=== PATIENT | female | born 1990 | race Caucasian/White ===

== ENCOUNTER → 2016-07-07 | Outpatient (CLI) | payer OTHER ==
[~2016-07-07] MED LIST: ACHD5005 PO; AMOX500C2 PO; ANTI14DR4 OT; Azo; BUTA-234 PO; CIPR500T78 PO; CPR500T PO; DEPO SHOT; DOXY100C2 PO; FERR-57 PO; HYDR-34 PO; HYDR1TAB PO; IBUP-1773 PO; Ibuprofen; METR500T PO; NF-NOR777T PO; NITR100C3 PO; ONDA8TAB9 PO; OXYC-12 PO; PHEN100T17 PO; PHEN200T27 PO; PREN-115 PO; PREN-93 PO; Tylenol
--- NOTE | 2016-07-07 16:28 | Diagnostic Imaging Report ---
OB ultrasound. INDICATION: heart tones not heard in office examination. FINDINGS: There is a single intrauterine seen. heart rate is 149 beats per minute. The average growth parameters at this time are 13 weeks and 6 days compatible with the gestational age based on first trimester ultrasound of 13 weeks and 4 days. There is early placental implantation thicker posteriorly with no retroplacental hemorrhage. IMPRESSION: Live intrauterine . Appropriate interval growth. Dictated by: Dictated on workstation # [id number]
== END ==
LOC: RAD 15:59
PROVIDERS: ATTEND Family Medicine
DX: Z34.91 Encounter for supervision of normal pregnancy, unspecified, first trimester (principal); Z3A.13 13 weeks gestation of pregnancy
CPT/HCPCS: 76801

== ENCOUNTER → 2016-10-29 | Outpatient (CLI) | payer OTHER ==
--- NOTE | 2016-10-29 13:42 | Diagnostic Imaging Report ---
INDICATION: OB ultrasound for survey. FINDINGS: Single live intrauterine fetus. Fetus is currently vertex. Fetus is active. The amniotic fluid index is normal. Placenta is anterior and grade 1. No evidence of abruption or previa. heartbeat of 150 beats per minute. anatomical survey appears normal with the exception of cord insertion which was not well demonstrated due to position. Biometric measurements are BPD 7.36 cm, head circumference 28.54 cm, abdominal circumference 26.74 cm, femur length 5.52 cm. Estimated weight of 1538 g. IMPRESSION: 1. There is a 29 weeks 6 days live intrauterine dated by previous ultrasound. Patient shows normal growth within the 50th percentile for size and weight. 2. The umbilical cord is three vessel however the abdominal insertion was not well demonstrated on this exam due to positioning. Remainder of the survey was normal. Dictated by: Dictated on workstation # [id number]
== END ==
LOC: RAD 12:10
PROVIDERS: ATTEND Family Medicine
DX: Z34.93 Encounter for supervision of normal pregnancy, unspecified, third trimester (principal); Z36 Encounter for antenatal screening of mother; Z3A.28 28 weeks gestation of pregnancy
CPT/HCPCS: 76805

== ENCOUNTER 2016-12-15 00:06 | Inpatient (IN) | payer MEDICAID ==
[~2016-12-15] VITALS: Ht 170.2 cm; Wt 92.7 kg
[2016-12-15] VITALS (46 sets, daily range): BP systolic 106–160; BP diastolic 57–106
[2016-12-15 01:00] LABS: BILIRUBIN,URINE NEGATIVE (NEGATIVE); KETONES,URINE NEGATIVE (NEGATIVE); LEUKOCYTE ESTERASE ,URINE 3+ (NEGATIVE); NITRITE,URINE NEGATIVE (NEGATIVE); PH,URINE 6.5 (5-9); PROTEIN,URINE NEGATIVE (NEGATIVE); UROBILINOGEN,URINE NORMAL (NORMAL)
[2016-12-15] MEDS ORDERED: PREN-142 PO (01:30)
[2016-12-15] MEDS ORDERED: AMPICILLIN 2000 MG INJECTION (IM/IV) ONE (07:18)
[2016-12-15] MEDS ORDERED: NS (IVPB) 50 ML ONE (07:18)
[2016-12-15] MEDS ORDERED: D5 LR IV SOLUTION 1,000 ML IV ONE (07:18)
[2016-12-15] MEDS ORDERED: CATHETER FLUSH 10 ML SYR IV PRN (07:45)
[2016-12-15] MEDS ORDERED: D5 LR IV SOLUTION 1,000 ML IV SCH (07:45)
[2016-12-15] MEDS ORDERED: OXYTOCIN/NORMAL SALINE 500 ML IV SCH ×2 (07:45→15:00)
--- NOTE | 2016-12-15 07:45 | History & Physical-OB ---
OB - Chief Complaint & HPI Date/Time Date of Admission: December 15, 2016 Time Seen by Provider: 07:40 Chief Complaint/History OB-Reason for Admission/Chief: Onset of Labor Hx : 4 Hx Para: 3 Expected Date of Delivery: Jan 08, 2017 Gestational Age in Weeks: 36 Gestational Age in Days: 4 Admission Nurse Assessment Rev: Yes History of Labs GBS status is unknown Allergies and Home Medications Allergies Coded Allergies: zolmitriptan (Unverified Allergy, Mild, 05/14/09) Home Medications Vit No.124/Iron/FA 1 Each Tablet, 1 EACH PO DAILY, (Reported) OB - History Hx of Present Care: Yes Ultrasounds: Normal mid trimester US Obstetrical Complications: None Medical Complications: None Obstetrical History Hx : 4 Hx Para: 3 Hx Termination: No Hx Multiple Gestation: No Hx Stillbirth: No Hx Complication: No Hx Induced Hypertens: No Hx Maternal Gestational Diabet: No Delivery History Hx Dystocia: No Hx Large For Gestational Age I: No Hx Small for Gestational Age I: No Hx Section: No Hx Vaginal Delivery Post C-Sec: No Hx Blood Disorders: No Patient Past Medical History Past Medical History 1. Pre-eclampsia with 2. Tobaccoism 3. Recurrent UTI's Past Surgical History 1. None Social History/Family History HIV/AIDS: No Recent Infectious Disease Expo: No Sexually Transmitted Disease: No Immunizations Hepatitis A: Yes Hepatitis B: Yes Tetanus Booster (TDap): Less than 5yrs Date of Influenza Vaccine: May 16, 2012 OB - Admission Exam Physical Exam Date Seen by Provider: Dec 15, 2016 Time Seen by Provider: 07:40 HEENT: Moist Membranes Heart: Rhythm Normal Lungs: Clear Abdomen: Gravid Cervical Dilatation: 5cm Effacement: 50% Station: -2 Membranes: Intact Heart Rate: 140's Accelerations: Accelerations Present Short Term Variability: Present Jail Variability: Average (6-25) Intensity: Moderate Labs Laboratory Tests Test 12/15/16 00:15 Range/Units Urine Color YELLOW Urine Clarity SLIGHTLY CLOUDY Urine pH 6.5 5-9 Urine Specific [place] 1.015 L 1.016-1.022 Urine Protein NEGATIVE NEGATIVE Urine Glucose (UA) NEGATIVE NEGATIVE Urine Ketones NEGATIVE NEGATIVE Urine Nitrite NEGATIVE NEGATIVE Urine Bilirubin NEGATIVE NEGATIVE Urine Urobilinogen NORMAL NORMAL MG/DL Urine Leukocyte Esterase 3+ H NEGATIVE Urine RBC (Auto) NEGATIVE NEGATIVE Urine RBC NONE /HPF Urine WBC 5-10 H /HPF Urine Squamous Epithelial Cells 5-10 /HPF Urine Crystals NONE /LPF Urine Bacteria MODERATE H /HPF Urine Casts NONE /LPF Urine Mucus SMALL H /LPF Urine Culture Indicated YES OB - Assessment/Plan/Diagnosis Assessment Assessment: active labor (at 36 weeks 4 days gestation) Plan Induction Method: AROM Other Plan -she desires epidural -ampicillin for unknown GBS status ALBINA MORALES MD Dec 15, 2016 07:45
[2016-12-15 08:02] LABS: BASOPHILS % (AUTO) 0 % (0-10); EOSINOPHILS # (AUTO) 0.1 10^3/uL (0.0-0.3); EOSINOPHILS % (AUTO) 1 % (0-10); LYMPHOCYTES % (AUTO) 19 % (12-44); MEAN CORPUSCULAR HEMOGLOBIN 30 PG (25-34); MEAN CORPUSCULAR HGB CONC 32 G/DL (32-36); MEAN CORPUSCULAR VOLUME 91 FL (80-99); MEAN PLATELET VOLUME 11.7 FL (7.4-10.4); MONOCYTES # (AUTO) 0.8 X 10^3 (0.0-1.0); MONOCYTES % (AUTO) 7 % (0-12); NEUTROPHILS # (AUTO) 7.4 X 10^3 (1.8-7.8); NEUTROPHILS % (AUTO) 73 % (42-75); PLATELET COUNT 143 10^3/uL (130-400); RED BLOOD COUNT 3.53 10^6/uL (4.35-5.85); RED CELL DISTRIBUTION WIDTH 13.8 % (10.0-14.5); WHITE BLOOD COUNT 10.3 10^3/uL (4.3-11.0)
[2016-12-15] MEDS ORDERED: LACTATED RINGERS 1,000 ML IV ONE ×2 (08:33→09:57)
[2016-12-15] MEDS ORDERED: SUFENTA 0.6MCG/ML BUPIVA 0.125 100 ML ONE (09:01)
[2016-12-15] MEDS ORDERED: BUPIVACAINE 0.25% 30 ML (SENSORCAINE) VIAL ONE (09:27)
[2016-12-15] MEDS ORDERED: fentaNYL INJECTION 100 MCG/2 ML AMP ONE (09:27)
[2016-12-15] MEDS ORDERED: fentaNYL INJECTION 100 MCG/2 ML AMP INJ ONE (10:00)
[2016-12-15] MEDS ORDERED: diphenhydrAMINE 50 MG/ML INJ (BENADRYL) IV PRN (10:00)
[2016-12-15] MEDS ORDERED: EPIDURAL (SUFENTA 0.6MCG/ML BUPIVA 0.125%) 100 ML BAG EPI ONE (10:00)
[2016-12-15] MEDS ORDERED: METOCLOPRAMIDE INJ 10 MG/2 ML (REGLAN) IV PRN (10:00)
[2016-12-15] MEDS ORDERED: NALOXONE 0.4 MG/ML 1 ML (NARCAN) VIAL IV PRN (10:00)
[2016-12-15] MEDS ORDERED: ONDANSETRON 4 MG/2 ML (SDV) Z0FRAN IV PRN (10:00)
[2016-12-15] MEDS ORDERED: AMPICILLIN INJECTION 1,000 MG in NS (IVPB) 50 ML IV SCH (11:30)
[2016-12-15] MEDS ORDERED: BENZOCAINE/MENTHOL (DERMOPLAST) 56 ML CAN TP PRN (15:00)
[2016-12-15] MEDS ORDERED: WITCH HAZEL(TUCKS) 40 EA JAR TOP PRN (15:00)
[2016-12-15] MEDS ORDERED: MEASLES,MUMPS,RUBELLA 1 EA INJ SQ ONE (15:00)
[2016-12-15] MEDS ORDERED: HYDROcodone/APAP 5 MG/325 MG (LORTAB) TAB PO PRN (15:00)
[2016-12-15] MEDS ORDERED: TETANUS,DIPTH,PERTUSS P/F (BOOSTRIX) 0.5 ML VIAL IM ONE (15:00)
--- NOTE | 2016-12-15 15:00 | OB Labor & Delivery Record ---
L&D History Date of Service Date of Service: Dec 15, 2016 History Expected Date of Delivery: Jan 08, 2017 Gestational Age in Weeks: 36 Hx : 4 Hx Para: 3 Complications Events: Routine care Operative Indications (Cesarea: N/A-Vaginal Delivery Intrapartal Events: None L&D Stage1 Stage One Onset of Labor - Date: Dec 15, 2016 Onset of Labor - Time: 10:00 Monitors and Tracing Monitor Mode: Internal Heart Rate: 120 Monitor Accelerations: Uniform Monitor Decelerations: None Station: -1 Short Term Variability: Present Presentation: Vertex Vital Signs VS - Last 72 Hours, by Label 12/15/16 12/15/16 12/15/16 12/15/16 00:23 05:00 07:30 08:00 Temp 98.0 98.3 98.0 Pulse 80 61 67 Resp 18 18 B/P (MAP) 135/90 133/84 129/81 O2 Delivery Room Air 12/15/16 12/15/16 12/15/16 12/15/16 08:30 09:00 09:15 09:30 Pulse 82 73 75 Resp 18 18 18 18 B/P (MAP) 113/64 107/61 110/65 O2 Delivery Room Air Room Air Room Air Room Air 12/15/16 12/15/16 12/15/16 12/15/16 09:37 09:41 09:44 09:45 Pulse 67 73 72 80 Resp 18 18 18 18 B/P (MAP) 157/67 158/84 137/85 139/83 Pulse Ox 100 100 100 100 O2 Delivery Room Air Room Air Room Air Room Air 12/15/16 12/15/16 12/15/16 12/15/16 09:47 09:53 10:00 10:15 Temp 98.3 98.4 Pulse 72 82 82 84 Resp 18 18 18 18 B/P (MAP) 138/79 142/65 125/60 156/79 Pulse Ox 100 99 99 99 O2 Delivery Room Air Room Air Room Air Room Air 12/15/16 12/15/16 12/15/16 12/15/16 10:30 10:45 11:00 11:15 Temp 98.0 Pulse 72 75 71 66 Resp 18 18 18 18 B/P (MAP) 122/79 134/84 125/84 121/79 Pulse Ox 99 99 99 99 O2 Delivery Room Air Room Air Room Air Room Air 12/15/16 12/15/16 12/15/16 12/15/16 11:30 11:45 12:00 12:15 Temp 97.9 Pulse 67 68 74 71 Resp 18 18 18 18 B/P (MAP) 124/82 130/74 133/82 125/71 Pulse Ox 97 99 99 99 O2 Delivery Room Air Room Air Room Air Room Air 12/15/16 12/15/16 12/15/16 12/15/16 12:30 12:45 13:00 13:15 Temp 98.5 97.7 Pulse 81 66 62 76 Resp 18 18 18 18 B/P (MAP) 135/75 130/85 130/78 135/86 Pulse Ox 100 98 98 99 O2 Delivery Room Air Room Air Room Air Room Air 12/15/16 12/15/16 13:30 13:45 Temp 98.1 Pulse 76 66 Resp 18 18 B/P (MAP) 139/86 125/82 Pulse Ox 100 100 O2 Delivery Room Air Room Air Rupture of Membranes Spontaneous Ruture of Membrane: No Amniotic Membrane Rupture Time: 1104 Amniotic Membrane Fluid Desc.: Clear Induction/Anesthesia Epidural Cath Placement - Time: 0944 L&D Stage2 Stage Two Stage II Date: Dec 15, 2016 Stage II Time: 14:48 Monitors and Tracing Monitor Mode: Internal Heart Rate: 120 Monitor Accelerations: Uniform Monitor Decelerations: Early Inclusion Special Education Teacher Variability: Average (6-10) Position: Left Occiput Anterior Presentation: Vertex Cord Descript/Complications Cord Vessel Description: 3 Vessels Delivery Type Infant Delivery Method: Spontaneous Vaginal Episiotomy/Perineal Laceration Laceraction(s)/Extensions: No Condition of Delivery 1 minute Comment: 8 5 minute Comment: 9 Condition of Condition of : Living Exam: No Observed Abnormalities Resuscitation Resuscitation: N/A - Spontaneous Resp L&D Stage3 Stage Three Stage III Date: Dec 15, 2016 Stage III Time: 14:52 Pictocin Pitocin Administration mu/min: 20 Pitocin ml/hr: 20 Pitocin Administration Comment: Pitocin started per protocol. Delivery Summary Summary 150 ALBINA MORALES MD Dec 15, 2016 15:00
[2016-12-15] MEDS: IBUPROFEN 600 MG (MOTRIN) TAB PO SCH ×2 (15:22→23:58)
[2016-12-15] MEDS ORDERED: METHYLERGONOVINE 0.2 MG/ML (METHERGINE) AMP IM ONE (15:45)
[2016-12-16 00:55] VITALS: BP 122/74
[2016-12-16] MEDS: CATHETER FLUSH 10 ML SYR IV SCH ×2 (01:08→06:35)
[2016-12-16 04:07] VITALS: BP 122/66
[2016-12-16 05:55] LABS: BASOPHILS % (AUTO) 0 % (0-10); EOSINOPHILS # (AUTO) 0.1 10^3/uL (0.0-0.3); EOSINOPHILS % (AUTO) 1 % (0-10); LYMPHOCYTES # (AUTO) 2.1 X 10^3 (1.0-4.0); LYMPHOCYTES % (AUTO) 22 % (12-44); MEAN CORPUSCULAR HEMOGLOBIN 29 PG (25-34); MEAN CORPUSCULAR HGB CONC 32 G/DL (32-36); MEAN CORPUSCULAR VOLUME 91 FL (80-99); MEAN PLATELET VOLUME 12.1 FL (7.4-10.4); MONOCYTES # (AUTO) 0.6 X 10^3 (0.0-1.0); MONOCYTES % (AUTO) 7 % (0-12); NEUTROPHILS # (AUTO) 6.7 X 10^3 (1.8-7.8); NEUTROPHILS % (AUTO) 70 % (42-75); PLATELET COUNT 150 10^3/uL (130-400); RED BLOOD COUNT 3.25 10^6/uL (4.35-5.85); RED CELL DISTRIBUTION WIDTH 13.7 % (10.0-14.5); WHITE BLOOD COUNT 9.6 10^3/uL (4.3-11.0)
[2016-12-16] MEDS: IBUPROFEN 600 MG (MOTRIN) TAB PO SCH ×3 (06:35→17:23)
[2016-12-16] MEDS ORDERED: AMPICILLIN INJECTION 2,000 MG in NS (IVPB) 50 ML IV SCH (07:30)
[2016-12-16] MEDS ORDERED: IBUP-1773 PO (07:37)
[2016-12-16] MEDS ORDERED: HYDR-3812 PO (07:37)
--- NOTE | 2016-12-16 07:38 | Discharge Inst-Women's Service ---
Discharge Inst-Women's Serv Depart Medication/Instructions New, Converted or Re-Newed RX: RX on Chart Consults/Follow Up Additional Follow Up: Yes (with Dr Morales at [facility]) Activity Activity: Activity as Tolerated Driving Instructions: You May Drive NO SMOKING: NO SMOKING Nothing Inside Vagina: No [place] (for 6 weeks) Diet Discharge Diet: Regular Diet Return to The Hospital For: as below Symptoms to Report to : Bleeding Excessive, Pain Increased, Fever Over 101 Degrees F, Vaginal Discharge Foul For Any Problems or Questions: Contact Your Physician, Go to Emergency Room ALBINA MORALES MD Dec 16, 2016 07:38
--- NOTE | 2016-12-16 07:43 | Discharge Summary ---
Diagnosis/Chief Complaint Date of Admission Dec 15, 2016 at 07:31 Date of Discharge December 16, 2016 Admission Diagnosis Admission Diagnosis 1. Intrauterine at 36 weeks 4 days gestation Discharge Diagnosis 1. Intrauterine at 36 weeks 4 days gestation 2. Anemiablood loss from delivery Chief Complaint/HPI Chief Complaint/HPI 26-year-old 4 now term 4 female who initially presents to women's services at 36 weeks 4 days gestation with uterine contractions. Patient was noted to have cervical change to 5 cm during the course of her observation. She initially was 4 cm on presentation and had been 4 cm over the previous week. She denied any ruptured membranes on presentation. Her EDC is January 08, 2017. She had not had her GBS status performed at the clinic at [facility], since this was due to be done the day she presented. Discharge Summary-OBS Procedures 1. Epidural per anesthesia 2. Spontaneous vaginal delivery Discharge Physical Examination Allergies: Coded Allergies: zolmitriptan (Unverified Allergy, Mild, 05/14/09) Vitals & I&Os Intake and Output 12/16/16 00:00 Intake Total 500 ml Output Total 1166 ml Balance -666 ml Vital Sign - Last 12Hours Date Time Temp Pulse Resp B/P (MAP) Pulse Ox O2 Delivery O2 Flow Rate FiO2 12/16/16 04:07 97.0 87 18 122/66 97 Room Air General Appearance: No Acute Distress Respiratory: Clear to Auscultation Cardiovascular: Regular Rate Abdominal: Soft (with uterus firm) Extremities: No Edema Hospital Course following presentation in observation she was committed to admission after cervix changed to 5 cm dilation. Since her GBS status was unknown she did receive loading dose of ampicillin 2 g followed by a second dose of 1 g 4 hours later. She received epidural during the first 4 hours of her labor phase. She underwent amniotomy after second dose of ampicillin and this was done in the morning of December 15, 2016. She continued of the labor with reactive strip. Pitocin augmentation was given up to a maximum at 20 mU/m. Ultimately she went on to completion and was allowed to push and delivered over an intact perineum a term viable male. Delivery was accomplished on December 15, 2016 at 1448. following delivery patient underwent routine care orders. She was noted have no complications during the remainder of hospital stay. She had received Methergine IM injection for bleeding briefly after delivery but this resolved after the injection. Her post delivery hemoglobin was noted to be 9.4 compared to initial admission of 10.4. She was without lightheaded or dizziness. She was felt ready for dismissal during the afternoon of December 16, 2016. Labs Laboratory Tests 12/15/16 07:55: White Blood Count 10.3, Red Blood Count 3.53L, Hemoglobin 10.4L, Hematocrit 32L , Mean Corpuscular Volume 91, Mean Corpuscular Hemoglobin 30, Mean Corpuscular Hemoglobin Concent 32, Red Cell Distribution Width 13.8, Platelet Count 143, Mean Platelet Volume 11.7H, Neutrophils (%) (Auto) 73, Lymphocytes (%) (Auto) 19 , Monocytes (%) (Auto) 7, Eosinophils (%) (Auto) 1, Basophils (%) (Auto) 0, Neutrophils # (Auto) 7.4, Lymphocytes # (Auto) 2.0, Monocytes # (Auto) 0.8, Eosinophils # (Auto) 0.1, Basophils # (Auto) 0.0 12/16/16 05:48: White Blood Count 9.6, Red Blood Count 3.25L, Hemoglobin 9.4L, Hematocrit 30L, Mean Corpuscular Volume 91, Mean Corpuscular Hemoglobin 29, Mean Corpuscular Hemoglobin Concent 32, Red Cell Distribution Width 13.7, Platelet Count 150, Mean Platelet Volume 12.1H, Neutrophils (%) (Auto) 70, Lymphocytes (%) (Auto) 22 , Monocytes (%) (Auto) 7, Eosinophils (%) (Auto) 1, Basophils (%) (Auto) 0, Neutrophils # (Auto) 6.7, Lymphocytes # (Auto) 2.1, Monocytes # (Auto) 0.6, Eosinophils # (Auto) 0.1, Basophils # (Auto) 0.0 Microbiology 12/15/16 Urine Culture - Preliminary, Resulted Discharge Instructions to patient/family Please see electonic discharge instructions given to patient. Discharge Medications Reviewed and agree with Discharge Medication list on patient's Discharge Instruction sheet Clinical Quality Measures DVT/VTE Risk/Contraindication: Risk Factor Score Per Nursin RFS Level Per Nursing on Admit: 2=Moderate ALBINA MORALES MD Dec 16, 2016 07:43
[2016-12-16 08:00] VITALS: BP 124/73
[2016-12-16] MEDS ORDERED: TETANUS,DIPTH,PERTUSS P/F (BOOSTRIX) 0.5 ML VIAL IM ONE (10:23)
--- NOTE | 2016-12-16 12:53 | Anesthesia-Regional Post-Op ---
Regional Patient Condition Mental Status: Alert, Oriented x3 Circulation: Same as Pre-Op Headache: Absent Sensation: Full Recovery Motor Block: Absent Post Op Complications Complications None Follow Up Care/Instructions Patient Instructions None needed. Anesthesia/Patient Condition Patient is doing well, no complaints, stable vital signs, no apparent adverse anesthesia problems. HAM ABERNATHY DO Dec 16, 2016 12:53
[2016-12-16 13:00] VITALS: BP 122/66
[2016-12-16 17:20] VITALS: BP 124/80
== END 2016-12-16 18:06 | disposition home or self-care (01) | DRG 775 ==
LOC: EEVIPCON 00:06 → WSo 00:06 → LDRP 00:07 → WSo 07:30 → LDRP 07:31 → EEVIPCON 07:31 → LDRP 17:45
PROVIDERS: ADMIT Family Medicine; ATTEND Family Medicine
PROC: 10E0XZZ Delivery of Products of Conception, External Approach (ICD-10-PCS; principal; 2016-12-15)
DX: O90.81 Anemia of the puerperium (principal); D62 Acute posthemorrhagic anemia; Z37.0 Single live birth; Z3A.36 36 weeks gestation of pregnancy; Z23 Encounter for immunization
CPT/HCPCS: 36415; 80306; 81000; 85025; 86850; 86900; 86901; 87088; 90715; 99212

== ENCOUNTER 2017-10-07 13:59 | Emergency (ER) | payer SELFPAY ==
[~2017-10-07] VITALS: Ht 175.3 cm; Wt 68.0 kg
[~2017-10-07 13:59] MED LIST changes: +PREN-142 PO
--- OUTSIDE RECORDS SUMMARY | 2017-10-07 14:18 | XMS REPORT ---
Author Author ALBINA MORALES [facility] Address [address] [place] [address] Care Team Providers Care Reel Operator Name Role Phone ALBINA MORALES Unavailable PROBLEMS Type Condition ICD9-CM Code [id number] Code Onset Dates Condition Status SNOMED Code Problem Major depressive disorder, recurrent episode, moderate F33.1 Active 953031619 Problem Posttraumatic stress disorder F43.10 Active 00240374 ALLERGIES No Known Allergies SOCIAL HISTORY No smoking Hx information available PLAN OF CARE VITAL SIGNS MEDICATIONS No Known Medications RESULTS No Results PROCEDURES No Known procedures IMMUNIZATIONS No Known Immunizations
--- OUTSIDE RECORDS SUMMARY | 2017-10-07 14:18 | XMS REPORT ---
Author Author ALBINA MORALES [facility] Address [address] [place] [address] Care Team Providers Care Parliamentary Archivist Name Role Phone ALBINA MORALES Unavailable PROBLEMS Type Condition ICD9-CM Code [id number] Code Onset Dates Condition Status SNOMED Code Problem Major depressive disorder, recurrent episode, moderate F33.1 Active 764127394 Problem Posttraumatic stress disorder F43.10 Active 74606061 ALLERGIES No Information SOCIAL HISTORY Never Assessed PLAN OF CARE VITAL SIGNS MEDICATIONS No Known Medications RESULTS No Results PROCEDURES No Known procedures IMMUNIZATIONS No Known Immunizations MEDICAL (GENERAL) HISTORY Type Description Date Hospitalization History pre turm labor december 2016
--- OUTSIDE RECORDS SUMMARY | 2017-10-07 14:18 | XMS REPORT ---
Author Author DUDLEY LORA Organization [facility] Address [address] [place] [address] Care Team Providers Care Cone Picker Name Role Phone GUIDOTEOFILO CAMACHOHANY Unavailable PROBLEMS Type Condition ICD9-CM Code [id number] Code Onset Dates Condition Status SNOMED Code Problem Posttraumatic stress disorder F43.10 Active 40263859 Problem Major depressive disorder, recurrent episode, moderate F33.1 Active [id number] ALLERGIES No Known Allergies SOCIAL HISTORY No smoking Hx information available PLAN OF CARE Activity Details Follow Up 4 Weeks Reason: VITAL SIGNS Height 66 in 2016-06-24 Weight 167.2 lbs 2016-06-24 Temperature 98.8 degrees Fahrenheit 2016-06-24 Heart Rate 80 bpm 2016-06-24 Respiratory Rate 20 2016-06-24 BMI 26.987 kg/m2 2016-06-24 Blood pressure systolic 110 mmHg 2016-06-24 Blood pressure diastolic 78 mmHg 2016-06-24 MEDICATIONS Medication Instructions Dosage Frequency Start Date End Date Duration Status Vitamin 27-0.8 MG Active RESULTS Name Result Date Reference Range UA OB DIP (IN HOUSE) 2016-06-24 Glucose negative Protein trace Ultrasound : OB, Limited 2016-06-25 PROCEDURES Procedure Date Ordered Related Diagnosis Body Site URINE-NO MICRO Jun 24, 2016 Office Visit, Est Pt., Level 3 Jun 24, 2016 IMMUNIZATIONS No Known Immunizations
[2017-10-07] MEDS ORDERED: NS IV 1000 ML 1,000 ML IV ONE (14:20)
--- OUTSIDE RECORDS SUMMARY | 2017-10-07 14:20 | XMS REPORT | Continuity of Care Document ---
Author Author [facility] [place] [facility] Address Unknown Phone Unavailable Allergies Active Description Code Type Severity Reaction Onset Reported/Identified Relationship to Patient Clinical Status Yes Zomig Drug Allergy N/A N/A 08/07/2008 Yes zolmitriptan [id number] Drug Allergy Mild N/A 05/14/2009 Medications There is no data. Problems Date Dx Coded Attending Type Code Diagnosis Diagnosed By 04/29/2008 BEN MEHTA DDS 462 PHARYNGITIS ACUTE 04/29/2008 BEN MEHTA DDS V20.2 WELL CHILD, ROUTINE 04/29/2008 MONSERRAT PENNINGTON PHD 462 PHARYNGITIS ACUTE 04/29/2008 MONSERRAT PENNINGTON PHD V20.2 WELL CHILD, ROUTINE 06/11/2008 BEN MEHTA DDS 486 PNEUMONIA UNSPECIFIED 06/11/2008 BEN MEHTA DDS 786.2 COUGH 06/11/2008 BEN MEHTA DDS 786.50 CHEST PAIN 06/11/2008 MONSERRAT PENNINGTON PHD 486 PNEUMONIA UNSPECIFIED 06/11/2008 MONSERRAT PENNINGTON PHD 786.2 COUGH 06/11/2008 MONSERRAT PENNINGTON PHD 786.50 CHEST PAIN 08/07/2008 BEN MEHTA DDS V25.40 visit for: contraceptive surveillance 08/07/2008 MONSERRAT PENNINGTON PHD V25.40 visit for: contraceptive surveillance 12/16/2009 BEN MEHTA DDS V65.11 NEW MOMMY VISIT 12/16/2009 MONSERRAT PENNINGTON PHD V65.11 NEW MOMMY VISIT 11/05/2010 BEN MEHTA DDS V25.02 CONTRACEPTION COUNSELING- ANY METHOD 11/05/2010 BEN MEHTA DDS V65.45 STD COUNSELING 11/05/2010 BEN MEHTA DDS V72.31 IC ENGINEER EXAM, ROUTINE 11/05/2010 BEN MEHTA DDS V74.5 STD SCREEN 11/05/2010 MONSERRAT PENNINGTON PHD V25.02 CONTRACEPTION COUNSELING- ANY METHOD 11/05/2010 MONSERRAT PENNINGTON PHD V65.45 STD COUNSELING 11/05/2010 MONSERRAT PENNINGTON PHD V72.31 IC ENGINEER EXAM, ROUTINE 11/05/2010 MONSERRAT PENNINGTON PHD V74.5 STD SCREEN 11/28/2010 WHITE DDS, BEN J 595.0 ACUTE CYSTITIS 11/28/2010 MONSERRAT PENNINGTON PHD 595.0 ACUTE CYSTITIS 01/29/2011 WHITE DDS, BEN Dozier V25.49 SURVEILLANCE OF OTHER CONTRACEPTIVE METHOD 01/29/2011 MONSERRAT PENNINGTON PHD V25.49 SURVEILLANCE OF OTHER CONTRACEPTIVE METHOD 01/08/2013 KATE ERVIN MD Ot 599.0 01/08/2013 KATE ERVIN MD Ot 788.1 06/05/2013 KATE ERVIN MD Ot 382.9 06/05/2013 KATE ERVIN MD Ot 646.83 06/05/2013 KATE ERVIN MD Ot 784.0 09/13/2013 ALBINA MORALES MD Ot 655.73 09/13/2013 AMIRA AL Ot 522.5 09/13/2013 AMIRA AL Ot 784.92 10/11/2013 ALBINA MORALES MD Ot 644.03 THRT ANDI LABOR-ANTEPART 10/23/2013 ALBINA MORALES MD Ot 644.03 THRT ANDI LABOR-ANTEPART 10/24/2013 ALBINA MORALES MD Ot 644.21 EARLY ONSET DELIVERY-DEL 10/24/2013 ALBINA MORALES MD Ot 664.01 DEL W 1 DEG LACERAT-DEL 10/24/2013 ALBINA MORALES MD Ot V06.1 [id number], COMBINED [ 10/24/2013 ALBINA MORALES MD Ot V27.0 DELIVER-SINGLE LIVEBORN 05/09/2014 MONSERRAT PENNINGTON PHD 296.32 MO DEPRESSIVE RECURRENT MODERATE 05/09/2014 MONSERRAT PENNINGTON PHD 309.81 AN PTSD 09/05/2014 Ot 276.8 HYPOPOTASSEMIA 09/05/2014 Ot 590.10 AC PYELONEPHRITIS NOS 09/05/2014 Ot 789.09 ABDOMINAL PAIN, OTHER SPECIFIED SITE 09/06/2014 Ot 041.49 OTHER AND UNSPECIFIED ESCHERICHIA COLI [ 09/06/2014 Ot 276.8 HYPOPOTASSEMIA 09/06/2014 Ot 305.1 TOBACCO USE DISORDER 09/06/2014 Ot 590.80 PYELONEPHRITIS NOS 03/17/2015 ALBINA MORALES MD Ot 649.63 03/17/2015 ALBINA MORALES MD Ot V28.81 07/04/2015 DENIZ FORRESTER MD, Ot F17.210 NICOTINE DEPENDENCE, CIGARETTES, UNCOMPL 07/04/2015 DENIZ FORRESTER MD, Ot N93.9 ABNORMAL UTERINE AND VAGINAL BLEEDING, U 07/04/2015 DENIZ FORRESTER MD, Ot Z53.29 PROC/TRTMT NOT CRD OUT BEC PT DECISION F 07/22/2015 DENIZ FORRESTER MD, Ot F17.210 07/22/2015 DENIZ FORRESTER MD, Ot N93.9 07/22/2015 DENIZ FORRESTER MD, Ot Z53.29 06/28/2016 DUDLEY LORA MD Ot O20.0 THREATENED 06/28/2016 DUDLEY LORA MD Ot Z3A.11 11 WEEKS GESTATION OF 06/29/2016 DUDLEY LORA MD Ot O20.0 THREATENED 06/29/2016 DUDLEY LORA MD Ot Z3A.11 11 WEEKS GESTATION OF 07/09/2016 ALIBNA MORALES MD Ot Z34.91 ENCNTR FOR SUPRVSN OF NORMAL PREG, UNSP, 07/09/2016 ALBINA MORALES MD, Ot Z3A.13 13 WEEKS GESTATION OF 10/21/2016 ALBINA MORALES MD Ot Z34.91 ENCNTR FOR SUPRVSN OF NORMAL PREG, UNSP, 10/21/2016 ALBINA MORALES MD, Ot Z3A.11 11 WEEKS GESTATION OF 10/21/2016 DUDLEY LORA MD Ot O20.0 THREATENED 10/21/2016 DUDLEY LORA MD Ot Z3A.11 11 WEEKS GESTATION OF 10/21/2016 ALBINA MORALES MD, Ot Z34.91 ENCNTR FOR SUPRVSN OF NORMAL PREG, UNSP, 10/21/2016 ALBINA MORALES MD, Ot Z3A.13 13 WEEKS GESTATION OF 10/29/2016 ALBINA MORALES MD, Ot Z34.91 ENCNTR FOR SUPRVSN OF NORMAL PREG, UNSP, 10/29/2016 ALBINA MORALES MD, Ot Z3A.11 11 WEEKS GESTATION OF 10/29/2016 DUDLEY LORA MD Ot O20.0 THREATENED 10/29/2016 DUDLEY LORA MD Ot Z3A.11 11 WEEKS GESTATION OF 10/29/2016 ALBINA MORALES MD, Ot Z34.91 ENCNTR FOR SUPRVSN OF NORMAL PREG, UNSP, 10/29/2016 ALBINA MORALES MD, Ot Z3A.13 13 WEEKS GESTATION OF 11/02/2016 ALBINA MORALES MD, Ot Z34.91 ENCNTR FOR SUPRVSN OF NORMAL PREG, UNSP, 11/02/2016 ALBINA MORALES MD Ot Z3A.11 11 WEEKS GESTATION OF 11/02/2016 DUDLEY LORA MD Ot O20.0 THREATENED 11/02/2016 DUDLEY LORA MD Ot Z3A.11 11 WEEKS GESTATION OF 11/02/2016 ALBINA MORALES MD, Ot Z34.91 ENCNTR FOR SUPRVSN OF NORMAL PREG, UNSP, 11/02/2016 ALBINA MORALES MD, Ot Z3A.13 13 WEEKS GESTATION OF 11/02/2016 ALBINA MORALES MD, Ot Z34.93 ENCNTR FOR SUPRVSN OF NORMAL PREG, UNSP, 11/02/2016 ALBINA MORALES MD, Ot Z36 ENCOUNTER FOR SCREENING OF MOT 11/02/2016 ALBINA MORALES MD, Ot Z3A.28 28 WEEKS GESTATION OF 11/02/2016 ALBINA MORALES MD, Ot Z34.91 ENCNTR FOR SUPRVSN OF NORMAL PREG, UNSP, 11/02/2016 ALBINA MORALES MD, Ot Z3A.11 11 WEEKS GESTATION OF 11/02/2016 GUIDO MD, DUDLEY N Ot O20.0 THREATENED 11/02/2016 DUDLEY LORA MD Ot Z3A.11 11 WEEKS GESTATION OF 11/02/2016 ALBINA MORALES MD, Ot Z34.91 ENCNTR FOR SUPRVSN OF NORMAL PREG, UNSP, 11/02/2016 ALBINA MORALES MD Ot Z3A.13 13 WEEKS GESTATION OF 11/02/2016 ALBINA MORALES MD, Ot Z34.93 ENCNTR FOR SUPRVSN OF NORMAL PREG, UNSP, 11/02/2016 ALBINA MORALES MD Ot Z36 ENCOUNTER FOR SCREENING OF MOT 11/02/2016 ALBINA MORALES MD, Ot Z3A.28 28 WEEKS GESTATION OF 11/02/2016 ALBINA MORALES MD, Ot Z34.91 ENCNTR FOR SUPRVSN OF NORMAL PREG, UNSP, 11/02/2016 ALBINA MORALES MD, Ot Z3A.13 13 WEEKS GESTATION OF 11/02/2016 ALBINA MORALES MD, Ot Z34.93 ENCNTR FOR SUPRVSN OF NORMAL PREG, UNSP, 11/02/2016 ALBINA MORALES MD, Ot Z36 ENCOUNTER FOR SCREENING OF MOT 11/02/2016 ALBINA MORALES MD, Ot Z3A.28 28 WEEKS GESTATION OF 11/02/2016 ALBINA MORALES MD, Ot Z34.91 ENCNTR FOR SUPRVSN OF NORMAL PREG, UNSP, 11/02/2016 ALBINA MORALES MD Ot Z3A.11 11 WEEKS GESTATION OF 11/02/2016 DUDLEY LORA MD Ot O20.0 THREATENED 11/02/2016 DUDLEY LORA MD Ot Z3A.11 11 WEEKS GESTATION OF 11/03/2016 DUDLEY LORA MD Ot O20.0 THREATENED 11/03/2016 DUDLEY LORA MD Ot Z3A.11 11 WEEKS GESTATION OF 11/03/2016 ALBINA MORALES MD, Ot Z34.91 ENCNTR FOR SUPRVSN OF NORMAL PREG, UNSP, 11/03/2016 ALBINA MORALES MD Ot Z3A.13 13 WEEKS GESTATION OF 11/03/2016 ALBINA MORALES MD, Ot Z34.93 ENCNTR FOR SUPRVSN OF NORMAL PREG, UNSP, 11/03/2016 ALBINA MORALES MD Ot Z36 ENCOUNTER FOR SCREENING OF MOT 11/03/2016 ALBINA MORALES MD, Ot Z3A.28 28 WEEKS GESTATION OF 11/04/2016 ALBINA MORALES MD, Ot Z34.93 ENCNTR FOR SUPRVSN OF NORMAL PREG, UNSP, 11/04/2016 ALBINA MORALES MD Ot Z36 ENCOUNTER FOR SCREENING OF MOT 11/04/2016 ALBINA MORALES MD, Ot Z3A.28 28 WEEKS GESTATION OF 12/01/2016 ALBINA MORALES MD, Ot Z34.93 ENCNTR FOR SUPRVSN OF NORMAL PREG, UNSP, 12/01/2016 ALBINA MORALES MD Ot Z36 ENCOUNTER FOR SCREENING OF MOT 12/01/2016 ALBINA MORALES MD Ot Z3A.28 28 WEEKS GESTATION OF 12/01/2016 ALBINA MORALES MD Ot Z34.93 ENCNTR FOR SUPRVSN OF NORMAL PREG, UNSP, 12/01/2016 ALBINA MORALES MD Ot Z36 ENCOUNTER FOR SCREENING OF MOT 12/01/2016 ALBINA MORALES MD Ot Z3A.28 28 WEEKS GESTATION OF 12/05/2016 ALBINA MORALES MD Ot Z34.91 ENCNTR FOR SUPRVSN OF NORMAL PREG, UNSP, 12/05/2016 ALBINA MORALES MD Ot Z3A.11 11 WEEKS GESTATION OF 12/05/2016 DUDLEY LORA MD Ot O20.0 THREATENED 12/05/2016 DUDLEY LORA MD Ot Z3A.11 11 WEEKS GESTATION OF 12/05/2016 ALBINA MORALES MD Ot Z34.91 ENCNTR FOR SUPRVSN OF NORMAL PREG, UNSP, 12/05/2016 ALBINA MORALES MD Ot Z3A.13 13 WEEKS GESTATION OF 12/05/2016 ALBINA MORALES MD Ot Z34.93 ENCNTR FOR SUPRVSN OF NORMAL PREG, UNSP, 12/05/2016 ALBINA MORALES MD Ot Z36 ENCOUNTER FOR SCREENING OF MOT 12/05/2016 ALBINA MORALES MD, Ot Z3A.28 28 WEEKS GESTATION OF 12/06/2016 DUDLEY LORA MD Ot F17.210 NICOTINE DEPENDENCE, CIGARETTES, UNCOMPL 12/06/2016 DUDLEY LORA MD Ot O60.03 LABOR WITHOUT DELIVERY, THIRD TR 12/06/2016 DUDLEY LORA MD Ot O99.333 SMOKING (TOBACCO) COMPLICATING 12/06/2016 DUDLEY LORA MD Ot Z3A.35 35 WEEKS GESTATION OF 12/06/2016 DUDLEY LORA MD Ot F17.210 NICOTINE DEPENDENCE, CIGARETTES, UNCOMPL 12/06/2016 DUDLEY LORA MD Ot O60.03 LABOR WITHOUT DELIVERY, THIRD TR 12/06/2016 DUDLEY LORA MD Ot O99.333 SMOKING (TOBACCO) COMPLICATING 12/06/2016 DUDLEY LORA MD Ot Z3A.35 35 WEEKS GESTATION OF 12/16/2016 ALBINA MORALES MD, Ot Z34.93 ENCNTR FOR SUPRVSN OF NORMAL PREG, UNSP, 12/16/2016 ALBINA MORALES MD, Ot Z36 ENCOUNTER FOR SCREENING OF MOT 12/16/2016 ALBINA MORALES MD, Ot Z3A.28 28 WEEKS GESTATION OF 12/16/2016 ALBINA MORALES MD, Ot D62 ACUTE POSTHEMORRHAGIC ANEMIA 12/16/2016 ALBINA MORALES MD, Ot O90.81 ANEMIA OF THE PUERPERIUM 12/16/2016 ALBINA MORALES MD Ot Z23 ENCOUNTER FOR IMMUNIZATION 12/16/2016 ALBINA MORALES MD, Ot Z37.0 SINGLE LIVE 12/16/2016 ALBINA MORALES MD, Ot Z3A.36 36 WEEKS GESTATION OF 01/14/2017 ALBINA MORALES MD, Ot Z34.91 ENCNTR FOR SUPRVSN OF NORMAL PREG, UNSP, 01/14/2017 ALBINA MORALES MD, Ot Z3A.11 11 WEEKS GESTATION OF 01/14/2017 DUDLEY LORA MD Ot O20.0 THREATENED 01/14/2017 DUDLEY LORA MD Ot Z3A.11 11 WEEKS GESTATION OF 01/14/2017 CARMEN BRUCE, ALBINA Dozier Ot Z34.91 ENCNTR FOR SUPRVSN OF NORMAL PREG, UNSP, 01/14/2017 CARMEN BRUCE, ALBINA Dozier Ot Z3A.13 13 WEEKS GESTATION OF Procedures Code Description Performed By Performed On 75.69 REPAIR OB LACERATION NEC 10/24/2013 08649 PSYCH DIAGNOSTIC EVALUATION 05/09/2014 [id number] DELIVERY OF PRODUCTS OF CONCEPTION, EXTE 12/15/2016 Results Test Result Range CBC With Differential/Platelet - 06/09/16 16:18 WBC 7.7 x10E3/uL 3.4-10.8 RBC 4.13 x10E6/uL 3.77-5.28 Hemoglobin 12.7 g/dL 11.1-15.9 Hematocrit 37.6 % 34.0-46.6 MCV 91 fL 79-97 MCH 30.8 pg 26.6-33.0 MCHC 33.8 g/dL 31.5-35.7 RDW 13.3 % 12.3-15.4 Platelets 270 x10E3/uL 150-379 Neutrophils 65 % Lymphs 27 % Monocytes 7 % Eos 1 % Basos 0 % Neutrophils (Absolute) 5.0 x10E3/uL 1.4-7.0 Lymphs (Absolute) 2.1 x10E3/uL 0.7-3.1 Monocytes(Absolute) 0.5 x10E3/uL 0.1-0.9 Eos (Absolute) 0.1 x10E3/uL 0.0-0.4 Baso (Absolute) 0.0 x10E3/uL 0.0-0.2 Immature Granulocytes 0 % Immature Grans (Abs) 0.0 x10E3/uL 0.0-0.1 ABO Grouping and Rho(D) Typing - 06/09/16 16:18 ABO Grouping A Rh Factor Positive Rubella Antibodies, IgG - 06/09/16 16:18 Rubella Antibodies, IgG 1.12 index Immune >0.99 TSH - 06/09/16 16:18 TSH 0.033 uIU/mL 0.450-4.500 Antibody Screen - 06/09/16 16:18 Antibody Screen Negative Negative Urine Culture, Routine - 06/09/16 16:18 Urine Culture, Routine Note Genital Culture, Routine - 06/09/16 16:18 Genital Culture, Routine Note Pap Lb, rfx HPV ASCU - 06/09/16 16:18 DIAGNOSIS: Comment Specimen adequacy: Comment Clinician provided ICD10: Comment Performed by: Comment QC reviewed by: Comment . . Pathologist provided ICD10: Comment Note: Comment . Comment TSH+Free T4 - 07/07/16 15:27 TSH 0.086 uIU/mL 0.450-4.500 T4,Free(Direct) 1.32 ng/dL 0.82-1.77 Automated blood complete blood count (hemogram) panel - 12/06/16 07:51 Blood leukocytes automated count (number/volume) 8.6 10*3/uL 4.3-11.0 Blood erythrocytes automated count (number/volume) 3.54 10*6/uL 4.35-5.85 Venous blood hemoglobin measurement (mass/volume) 10.3 g/dL 11.5-16.0 Blood hematocrit (volume fraction) 32 % 35-52 Automated erythrocyte mean corpuscular volume 90 [foz_us] 80-99 Automated erythrocyte mean corpuscular hemoglobin (mass per erythrocyte) 29 pg 25-34 Automated erythrocyte mean corpuscular hemoglobin concentration measurement ( mass/volume) 32 g/dL 32-36 Automated erythrocyte distribution width ratio 12.9 % 10.0-14.5 Automated blood platelet count (count/volume) 144 10*3/uL 130-400 Automated blood platelet mean volume measurement 11.9 [foz_us] 7.4-10.4 Comprehensive metabolic panel - 12/06/16 07:51 Serum or plasma sodium measurement (moles/volume) 138 mmol/L 135-145 Serum or plasma potassium measurement (moles/volume) 3.4 mmol/L 3.6-5.0 Serum or plasma chloride measurement (moles/volume) 108 mmol/L 98-107 Carbon dioxide 22 mmol/L 21-32 Serum or plasma anion gap determination (moles/volume) 8 mmol/L 5-14 Serum or plasma urea nitrogen measurement (mass/volume) 3 mg/dL 7-18 Serum or plasma creatinine measurement (mass/volume) 0.57 mg/dL 0.60-1.30 Serum or plasma urea nitrogen/creatinine mass ratio 5 NRG Serum or plasma creatinine measurement with calculation of estimated glomerular filtration rate > NRG Serum or plasma glucose measurement (mass/volume) 107 mg/dL 70-105 Serum or plasma calcium measurement (mass/volume) 8.3 mg/dL 8.5-10.1 Serum or plasma total bilirubin measurement (mass/volume) 0.3 mg/dL 0.1-1.0 Serum or plasma alkaline phosphatase measurement (enzymatic activity/volume) 82 U/L 40-136 Serum or plasma aspartate aminotransferase measurement (enzymatic activity/ volume) 9 U/L 5-34 Serum or plasma alanine aminotransferase measurement (enzymatic activity/volume ) 9 U/L 0-55 Serum or plasma protein measurement (mass/volume) 5.5 g/dL 6.4-8.2 Serum or plasma albumin measurement (mass/volume) 2.7 g/dL 3.2-4.5 Complete urinalysis with reflex to culture - 12/15/16 00:15 Urine color determination YELLOW NRG Urine clarity determination SLIGHTLY CLOUDY NRG Urine pH measurement by test strip 6.5 5-9 Specific gravity of urine by test strip 1.015 1.016- 1.022 Urine protein assay by test strip, semi-quantitative NEGATIVE NEGATIVE Urine glucose detection by automated test strip NEGATIVE NEGATIVE Erythrocytes detection in urine sediment by light microscopy NEGATIVE NEGATIVE Urine ketones detection by automated test strip NEGATIVE NEGATIVE Urine nitrite detection by test strip NEGATIVE NEGATIVE Urine total bilirubin detection by test strip NEGATIVE NEGATIVE Urine urobilinogen measurement by automated test strip (mass/volume) NORMAL NORMAL Urine leukocyte esterase detection by dipstick 3+ NEGATIVE Automated urine sediment erythrocyte count by microscopy (number/high power field) NONE NRG Automated urine sediment leukocyte count by microscopy (number/high power field ) [HPF] NRG Bacteria detection in urine sediment by light microscopy MODERATE NRG Squamous epithelial cells detection in urine sediment by light microscopy 5-10 NRG Crystals detection in urine sediment by light microscopy NONE NRG Casts detection in urine sediment by light microscopy NONE NRG Mucus detection in urine sediment by light microscopy SMALL NRG Complete urinalysis with reflex to culture YES NRG Urine drug screening test - 12/15/16 00:15 Urine phencyclidine detection by screening method NEGATIVE NEGATIVE Urine benzodiazepines detection by screening method NEGATIVE NEGATIVE Urine cocaine detection NEGATIVE NEGATIVE Urine amphetamines detection by screening method NEGATIVE NEGATIVE Urine methamphetamine detection by screening method NEGATIVE NEGATIVE Urine cannabinoids detection by screening method NEGATIVE NEGATIVE Urine opiates detection by screening method NEGATIVE NEGATIVE Urine barbiturates detection NEGATIVE NEGATIVE Screening urine tricyclic antidepressants detection NEGATIVE NEGATIVE Urine methadone detection by screening method NEGATIVE NEGATIVE Urine oxycodone detection NEGATIVE NEGATIVE Urine propoxyphene detection NEGATIVE NEGATIVE Bacterial urine culture - 12/15/16 00:15 URINE CULTURE RESULTS <10,000/ML NRG Complete blood count (CBC) with automated white blood cell (WBC) differential - 12/15/16 07:55 Blood leukocytes automated count (number/volume) 10.3 10*3/uL 4.3-11.0 Blood erythrocytes automated count (number/volume) 3.53 10*6/uL 4.35-5.85 Venous blood hemoglobin measurement (mass/volume) 10.4 g/dL 11.5-16.0 Blood hematocrit (volume fraction) 32 % 35-52 Automated erythrocyte mean corpuscular volume 91 [foz_us] 80-99 Automated erythrocyte mean corpuscular hemoglobin (mass per erythrocyte) 30 pg 25-34 Automated erythrocyte mean corpuscular hemoglobin concentration measurement ( mass/volume) 32 g/dL 32-36 Automated erythrocyte distribution width ratio 13.8 % 10.0-14.5 Automated blood platelet count (count/volume) 143 10*3/uL 130-400 Automated blood platelet mean volume measurement 11.7 [foz_us] 7.4-10.4 Automated blood neutrophils/100 leukocytes 73 % 42-75 Automated blood lymphocytes/100 leukocytes 19 % 12-44 Blood monocytes/100 leukocytes 7 % 0-12 Automated blood eosinophils/100 leukocytes 1 % 0-10 Automated blood basophils/100 leukocytes 0 % 0-10 Blood neutrophils automated count (number/volume) 7.4 10*3 1.8-7.8 Blood lymphocytes automated count (number/volume) 2.0 10*3 1.0-4.0 Blood monocytes automated count (number/volume) 0.8 10*3 0.0-1.0 Automated eosinophil count 0.1 10*3/uL 0.0-0.3 Automated blood basophil count (count/volume) 0.0 10*3/uL 0.0-0.1 Blood type T Indirect antibody screen panel - 12/15/16 07:55 ABO+Rh group AP NRG Transfusion band number [id number] NRG Blood group antibody screen NEGATIVE NRG Complete blood count (CBC) with automated white blood cell (WBC) differential - 12/16/16 05:48 Blood leukocytes automated count (number/volume) 9.6 10*3/uL 4.3-11.0 Blood erythrocytes automated count (number/volume) 3.25 10*6/uL 4.35-5.85 Venous blood hemoglobin measurement (mass/volume) 9.4 g/dL 11.5-16.0 Blood hematocrit (volume fraction) 30 % 35-52 Automated erythrocyte mean corpuscular volume 91 [foz_us] 80-99 Automated erythrocyte mean corpuscular hemoglobin (mass per erythrocyte) 29 pg 25-34 Automated erythrocyte mean corpuscular hemoglobin concentration measurement ( mass/volume) 32 g/dL 32-36 Automated erythrocyte distribution width ratio 13.7 % 10.0-14.5 Automated blood platelet count (count/volume) 150 10*3/uL 130-400 Automated blood platelet mean volume measurement 12.1 [foz_us] 7.4-10.4 Automated blood neutrophils/100 leukocytes 70 % 42-75 Automated blood lymphocytes/100 leukocytes 22 % 12-44 Blood monocytes/100 leukocytes 7 % 0-12 Automated blood eosinophils/100 leukocytes 1 % 0-10 Automated blood basophils/100 leukocytes 0 % 0-10 Blood neutrophils automated count (number/volume) 6.7 10*3 1.8-7.8 Blood lymphocytes automated count (number/volume) 2.1 10*3 1.0-4.0 Blood monocytes automated count (number/volume) 0.6 10*3 0.0-1.0 Automated eosinophil count 0.1 10*3/uL 0.0-0.3 Automated blood basophil count (count/volume) 0.0 10*3/uL 0.0-0.1 Encounters ACCT No. Visit Date/Time Discharge Status Pt. Type Provider Facility Loc./Unit Complaint [id number] 05/09/2014 11:06:00 05/09/2014 23:59:59 CLS Outpatient MONSERRAT PENNINGTON PHD [id number] 09/24/2013 10:01:00 09/24/2013 23:59:59 CLS Outpatient BEN MEHTA DDS [id number] 06/10/2016 18:05:00 Document Registration [id number] 06/11/2016 05:05:00 Document Registration [id number] 06/13/2016 07:05:00 Document Registration [id number] 07/08/2016 08:37:00 Document Registration [id number] 06/14/2016 18:05:00 Document Registration [id number] 12/15/2016 07:31:00 12/16/2016 18:06:00 DIS Inpatient ALBINA MORALES MD [facility] LDRP LABOR [id number] 12/05/2016 13:55:00 12/06/2016 09:07:00 DIS Inpatient DUDLEY LORA MD [facility] LDRP [id number] 10/29/2016 12:10:00 10/29/2016 23:59:59 CLS Outpatient ALBINA MORALES MD [facility] RAD Z3A.28 [id number] 07/07/2016 15:59:00 07/07/2016 23:59:59 CLS Outpatient ALBINA MORALES MD [facility] RAD 13 WEEKS GESTATION OF [id number] 06/25/2016 11:55:00 06/25/2016 23:59:59 CLS Outpatient DUDLEY LORA MD [facility] RAD THREATENED MISCARRIAGE [id number] 06/16/2016 11:17:00 06/16/2016 23:59:59 CLS Outpatient ALBINA MORALES MD [facility] RAD 11 WEEKS GESTATION OF [id number] 07/04/2015 05:02:00 07/04/2015 06:15:00 DIS Emergency DENIZ FORRESTER MD [facility] ER VAG BLEEDING [id number] 01/26/2014 10:17:00 01/26/2014 23:59:59 CLS Outpatient [id number] 01/26/2014 00:40:00 01/26/2014 00:52:00 DIS Emergency [id number] 10/23/2013 19:44:00 10/24/2013 10:15:00 DIS Inpatient ALBINA MORALES MD [facility] WS CONTRACTIONS [id number] 10/22/2013 12:20:00 10/23/2013 07:40:00 DIS Inpatient ALBINA MORALES MD [facility] WS CONTRACTIONS [id number] 10/11/2013 08:55:00 10/11/2013 09:50:00 DIS Out[facility] L[facility] BACK PAIN,LOWER ABD PAIN [id number] 09/13/2013 17:47:00 09/13/2013 18:50:00 DIS Emergency AMIRA AL [facility] ER [id number] 09/13/2013 16:31:00 09/13/2013 17:45:00 DIS Outpatient ALBINA MORALES MD [facility] WSo [id number] 07/16/2013 14:01:00 07/16/2013 23:59:59 CLS Outpatient ALBINA MORALES MD [facility] RAD [id number] 06/05/2013 17:57:00 06/05/2013 18:50:00 DIS Emergency KATE ERVIN MD [facility] ER [id number] 05/04/2013 12:50:00 05/04/2013 23:59:59 CLS Outpatient ALBINA MORALES MD [facility] RAD [id number] 01/08/2013 13:49:00 01/08/2013 15:30:00 DIS Emergency KATE ERVIN MD [facility] ER [id number] 09/05/2014 19:09:00 Document Registration [id number] 09/05/2014 13:45:00 Document Registration
[2017-10-07] MEDS ORDERED: ACETAMINOPHEN 500 MG TAB (TYLENOL) PO PRN (14:30)
--- NOTE | 2017-10-07 14:40 | ED General ---
General Chief Complaint: Fever-Adult/Adol Stated Complaint: PAIN ALL OVER,FEVER,HALLUCINATIONS Source of Information: Patient Exam Limitations: No Limitations History of Present Illness Date Seen by Provider: Oct 07, 2017 Time Seen by Provider: 14:15 Initial Comments Here with report of fever, chills, body aches, decreased urination and dysuria. Complains of back pain and tenderness left greater than right. Has history of pyelonephritis. Apparently the baby was sick within the last week or 2 and then the mother got sick. Denies diarrhea or vomiting. Reports decreased appetite. Timing/Duration: 2-3 Days, Getting Worse Severity: Moderate Associated Systoms: No Chest Pain, Cough, Fever/Chills, No Nausea/Vomiting, No Shortness of Air, Weakness Allergies and Home Medications Allergies Coded Allergies: zolmitriptan (Unverified Allergy, Mild, 05/14/09) Home Medications No Active Prescriptions or Reported Meds Patient Home Medication List Home Medication List Reviewed: Yes Review of Systems Constitutional: see HPI, chills, fever, malaise, weakness EENTM: No nose congestion, No throat pain Respiratory: cough, No short of breath Cardiovascular: no symptoms reported Gastrointestinal: No abdominal pain, loss of appetite, No nausea, No vomiting Genitourinary: decreased output, dysuria : No Musculoskeletal: no symptoms reported Skin: No dryness, No rash Psychiatric/Neurological: No Symptoms Reported Hematologic/Lymphatic: No Symptoms Reported All Other Systems Reviewed Negative Unless Noted: Yes Past Xmjfddk-Waboqj-Zywrmi Hx Past Med/Social Hx: Reviewed Nursing Past Med/Soc Hx Patient Social History Alcohol Use: Occasionally Uses Recreational Drug Use: No Smoking Status: Current Everyday Smoker Type Used: Cigarettes Recent Foreign Travel: No Contact w/Someone Who Travel: No Recent Hopitalizations: No Immunizations Up To Date Tetanus Booster (TDap): Less than 5yrs PED Vaccines UTD: Yes Date of Influenza Vaccine: May 16, 2012 Seasonal Allergies Seasonal Allergies: No Past Medical History Surgeries: No Respiratory: No Cardiac: No Neurological: No Reproductive Disorders: No Female Reproductive Disorders: Denies Sexually Transmitted Disease: No HIV/AIDS: No Genitourinary: Yes Kidney Infection, Bladder Infection Gastrointestinal: No Gastroesophageal Reflux Musculoskeletal: No Endocrine: No HEENT: No Loss of Vision: Denies Hearing Impairment: Denies Cancer: No Psychosocial: No Integumentary: No Blood Disorders: No Adverse Reaction/Blood Tranf: No Family Medical History Reviewed Nursing Family Hx Diabetes mellitus 19 FATHER FH: COPD (chronic obstructive pulmonary disease) 19 MOTHER maternal grandmother, Onset:Unknown Hepatitis C 19 FATHER Hypertension 19 MOTHER, Onset:Unknown maternal grandmother, Onset:Unknown Myocardial infarction maternal grandmother, Onset:Unknown Urinary tract infection 19 MOTHER, Onset:Unknown Physical Exam-Suspected Sepsis Physical Exam Vital Signs Vital Signs - First Documented 10/07/17 14:05 Temp 101.3 Pulse 118 Resp 18 B/P (MAP) 122/73 (89) Pulse Ox 94 Capillary Refill : General Appearance: No Apparent Distress, WD/WN HEENT: PERRL/EOMI, Pharynx Normal Neck: Non Tender, Supple Respiratory: Lungs Clear, Normal Breath Sounds Cardiovascular: No Murmur, Tachycardia Gastrointestinal: Non Tender, Soft Back: No Vertebral Tenderness, CVA Tenderness (L), CVA Tenderness (R) Extremity: Normal Range of Motion, Non Tender Neurologic/Psychiatric: Alert, Oriented x3 Skin: normal color, warm/dry Focused Exam Lactate Level 10/07/17 14:15: Lactic Acid Level 1.45 Lactic Acid Level Laboratory Tests Test 10/07/17 14:15 Lactic Acid Level 1.45 MMOL/L (0.50-2.00) Progress/Results/Core Measures Suspected Sepsis SIRS Temperature: Pulse: Respiratory Rate: Laboratory Tests 10/07/17 14:15: White Blood Count 8.2 Blood Pressure / Mean: 10/07/17 14:15: Lactic Acid Level 1.45 Laboratory Tests 10/07/17 14:15: Creatinine 1.06, INR Comment 1.2, Platelet Count 179, Total Bilirubin 0.6 Results/Orders Lab Results Laboratory Tests Test 10/07/17 14:15 Range/Units White Blood Count 8.2 4.3-11.0 10^3/uL Red Blood Count 4.92 4.35-5.85 10^6/uL Hemoglobin 11.6 11.5-16.0 G/DL Hematocrit 36 35-52 % Mean Corpuscular Volume 74 L 80-99 FL Mean Corpuscular Hemoglobin 24 L 25-34 PG Mean Corpuscular Hemoglobin Concent 32 32-36 G/DL Red Cell Distribution Width 17.3 H 10.0-14.5 % Platelet Count 179 130-400 10^3/uL Mean Platelet Volume 11.8 H 7.4-10.4 FL Neutrophils (%) (Auto) 85 H 42-75 % Lymphocytes (%) (Auto) 11 L 12-44 % Monocytes (%) (Auto) 4 0-12 % Eosinophils (%) (Auto) 0 0-10 % Basophils (%) (Auto) 0 0-10 % Neutrophils # (Auto) 6.9 1.8-7.8 X 10^3 Lymphocytes # (Auto) 0.9 L 1.0-4.0 X 10^3 Monocytes # (Auto) 0.3 0.0-1.0 X 10^3 Eosinophils # (Auto) 0.0 0.0-0.3 10^3/uL Basophils # (Auto) 0.0 0.0-0.1 10^3/uL Prothrombin Time 15.4 H 12.2-14.7 SEC INR Comment 1.2 0.8-1.4 Activated Partial Thromboplast Time 36 H 24-35 SEC Sodium Level 133 L 135-145 MMOL/L Potassium Level 2.8 L 3.6-5.0 MMOL/L Chloride Level 97 L 98-107 MMOL/L Carbon Dioxide Level 28 21-32 MMOL/L Anion Gap 8 5-14 MMOL/L Blood Urea Nitrogen 10 7-18 MG/DL Creatinine 1.06 0.60-1.30 MG/DL Estimat Glomerular Filtration Rate > 60 BUN/Creatinine Ratio 9 Glucose Level 129 H 70-105 MG/DL Lactic Acid Level 1.45 0.50-2.00 MMOL/L Calcium Level 8.8 8.5-10.1 MG/DL Total Bilirubin 0.6 0.1-1.0 MG/DL Aspartate Amino Transf (AST/SGOT) 19 5-34 U/L Alanine Aminotransferase (ALT/SGPT) 15 0-55 U/L Alkaline Phosphatase 77 40-136 U/L Total Protein 7.5 6.4-8.2 GM/DL Albumin 4.0 3.2-4.5 GM/DL Serum Test, Qualitative NEGATIVE NEGATIVE Micro Results Microbiology 10/07/17 Influenza Types A,B Antigen ([facility]) - Final, Complete My Orders Orders - DENIZ FORRESTER MD Cbc With Automated Diff (10/07/17 14:20) Comprehensive Metabolic Panel (10/07/17 14:20) Lactic Acid Analyzer (10/07/17 14:20) Blood Culture (10/07/17 14:20) Sputum Culture (10/07/17 14:20) Ua Culture If Indicated (10/07/17 14:20) Protime With Inr (10/07/17 14:20) Partial Thromboplastin Time (10/07/17 14:20) Chest 1 View, Ap/Pa Only (10/07/17 14:20) Acetaminophen Tablet (Tylenol Tablet) (10/07/17 14:30) Saline Lock/Iv-Start (10/07/17 14:20) Vital Signs Adult Sepsis Patie Q1H (10/07/17 14:20) Remove Rings In Anticipation O (10/07/17 14:20) Saline Lock/Iv-Start (10/07/17 14:20) Ns Iv 1000 Ml (Sodium Chloride 0.9%) (10/07/17 14:20) Influenza A And B Antigens (10/07/17 14:20) Hcg,Qualitative Serum (10/07/17 14:38) Medications Given in ED Current Medications Medications Dose Ordered Sig/Reid Route Start Time Stop Time Status Last Admin Dose Admin Acetaminophen 1,000 mg ONCE PRN PO 10/07/17 14:30 10/07/17 14:31 DC 10/07/17 14:31 1,000 MG Sodium Chloride 1,000 ml @ 0 mls/hr Q0M ONCE IV 10/07/17 14:20 10/07/17 14:21 DC 10/07/17 14:31 1,000 MLS/HR Vital Signs/I&O 10/07/17 10/07/17 14:05 15:29 Temp 101.3 101.3 Pulse 118 118 Resp 18 18 B/P (MAP) 122/73 (89) 122/73 (89) Pulse Ox 94 94 Capillary Refill : Progress Note : Progress Note Seen and evaluated. IV, labs, chest x-ray, UA, normal saline 1 L bolus, acetaminophen 1 g by mouth, blood cultures and lactic acid ordered. Monitor patient. 1520: Patient is very angry and states she is not to give a urine sample and she does not have a stay for treatment. She states that she knows her rights and she is not an assay for some stupid amoxicillin for urinary tract infection. I did explain to her my concerns including that she is very sick and this may be pyelonephritis given her history which could be deadly. She has elected to leave AGAINST MEDICAL ADVICE and understands that this may result in her . I did talk with the patient's mother who is in the room with her and told her to bring her back if there is any concerns and offered the same to the patient. I again expressed my concerns about how serious this could be and that this could result in severe injury or to her. She departed AGAINST MEDICAL ADVICE without paperwork. Departure Impression Primary Impression: Fever Qualified Codes: R50.9 - Fever, unspecified Disposition: Condition: Stable/Unchanged Departure-Patient Inst. Decision time for Depature: 15:20 Referrals: NO,LOCAL PHYSICIAN (PCP/Family) Primary Care Physician Patient Instructions: Fever, Adult (DC) Add. Discharge Instructions: All discharge instructions reviewed with patient and/or family. Voiced understanding. Return for any concerns. You are leaving AGAINST MEDICAL ADVICE and you may have significant illness that may result and significant injury or to you. Scripts No Active Prescriptions or Reported Meds DENIZ FORRESTER MD Oct 07, 2017 14:40
[2017-10-07 14:44] LABS: BASOPHILS % (AUTO) 0 % (0-10); EOSINOPHILS % (AUTO) 0 % (0-10); HEMATOCRIT 36 % (35-52); HEMOGLOBIN 11.6 G/DL (11.5-16.0); INR 1.2 (0.8-1.4); LYMPHOCYTES # (AUTO) 0.9 X 10^3 (1.0-4.0); LYMPHOCYTES % (AUTO) 11 % (12-44); MEAN CORPUSCULAR HEMOGLOBIN 24 PG (25-34); MEAN CORPUSCULAR HGB CONC 32 G/DL (32-36); MEAN CORPUSCULAR VOLUME 74 FL (80-99); MEAN PLATELET VOLUME 11.8 FL (7.4-10.4); MONOCYTES # (AUTO) 0.3 X 10^3 (0.0-1.0); MONOCYTES % (AUTO) 4 % (0-12); NEUTROPHILS # (AUTO) 6.9 X 10^3 (1.8-7.8); NEUTROPHILS % (AUTO) 85 % (42-75); PLATELET COUNT 179 10^3/uL (130-400); PROTHROMBIN TIME PATIENT 15.4 SEC (12.2-14.7); RED BLOOD COUNT 4.92 10^6/uL (4.35-5.85); RED CELL DISTRIBUTION WIDTH 17.3 % (10.0-14.5); WHITE BLOOD COUNT 8.2 10^3/uL (4.3-11.0)
--- NOTE | 2017-10-07 14:52 | Diagnostic Imaging Report ---
PATIENT HISTORY: Fever. TECHNIQUE: Single frontal view of the chest. COMPARISON: None FINDINGS: Lung volumes are normal. No focal consolidation is seen. There is no pleural effusion or pneumothorax. A calcified granuloma seen in the right lung base. The cardiomediastinal silhouette is normal in size and contour. No acute osseous abnormality seen. IMPRESSION: No acute pulmonary abnormality. Dictated by: Dictated on workstation # [id number]
[2017-10-07 14:53] LABS: ALANINE AMINOTRANSFERASE 15 U/L (0-55); ALKALINE PHOSPHATASE 77 U/L (40-136); BILIRUBIN,TOTAL 0.6 MG/DL (0.1-1.0); BUN/CREATININE RATIO 9; CALCIUM 8.8 MG/DL (8.5-10.1); CARBON DIOXIDE 28 MMOL/L (21-32); CHLORIDE 97 MMOL/L (98-107); CREATININE SERUM 1.06 MG/DL (0.60-1.30); GFR ESTIMATED > 60; GLUCOSE 129 MG/DL (70-105); POTASSIUM 2.8 MMOL/L (3.6-5.0); SODIUM 133 MMOL/L (135-145); TOTAL PROTEIN 7.5 GM/DL (6.4-8.2)
[2017-10-07 15:29] VITALS: BP 122/73
== END 2017-10-07 15:22 | disposition left against medical advice (07) ==
LOC: EDUNIT# 13:59 → ER 14:01
DX: R50.9 Fever, unspecified (principal); K21.9 Gastro-esophageal reflux disease without esophagitis; F17.210 Nicotine dependence, cigarettes, uncomplicated; Z87.448 Personal history of other diseases of urinary system; Z82.49 Family history of ischemic heart disease and other diseases of the circulatory system; Z88.8 Allergy status to other drugs, medicaments and biological substances
CPT/HCPCS: 36415; 71045; 80053; 83605; 84703; 85025; 85610; 85730; 87040; 87804; 96360

== ENCOUNTER 2019-05-14 14:44 | Emergency (ER) | payer SELFPAY ==
[~2019-05-14] VITALS: Ht 170.2 cm; Wt 79.5 kg
[2019-05-14 15:13] LABS: BILIRUBIN,URINE NEGATIVE (NEGATIVE); CLARITY,URINE CLEAR; COLOR,URINE YELLOW; GLUCOSE, URINE (UA) NEGATIVE (NEGATIVE); KETONES,URINE NEGATIVE (NEGATIVE); LEUKOCYTE ESTERASE ,URINE 3+ (NEGATIVE); NITRITE,URINE POSITIVE (NEGATIVE); PROTEIN,URINE 2+ (NEGATIVE)
[2019-05-14 15:54] LABS: BACTERIA,URINE TRACE /HPF; SQUAMOUS EPITHELIAL CELL,UR RARE /HPF; WBC,URINE TNTC /HPF
[2019-05-14] MEDS ORDERED: SULF1TAB35 PO (16:16)
--- NOTE | 2019-05-14 16:16 | ED GU-Female ---
General Chief Complaint: - Urinary Stated Complaint: LOWER BACK PAIN;BLADDER PAIN;UTI Nursing Triage Note: Pt amb to triage with c/o bilat flank discomfort radiating to bilat lower abd associated with nausea. Pt reports approx x4 days ago (04/10/19), pt developed dysuria, hematuria, frequency, and urgency. Pt reports to have obtained AZO medication OTC and experienced decrease in urinary symptoms. Pt rpeorts on this day she developed flank discomfort stating, "it feels like someone is kicking me in my back." Denies urinary symptoms @ this time. Denies fever or chills. Nursing Sepsis Screen: No Definite Risk History of Present Illness Date Seen by Provider: May 14, 2019 Time Seen by Provider: 15:30 Initial Comments 29-year-old female presents with UTI symptoms. She began taking Azo a proximally 4 days ago. She reports no UTI for at least 3-4 years. She does not have a PCP. Severity/Quality: mild Location: suprapubic Radiation: right flank, left flank Activities at Onset: none Associated Symptoms: dysuria; No fever/chills, No loss of bladder control; lower back pain (Left > Right); No nausea/vomiting, No nocturia, No polyuria, No urinary frequency Allergies and Home Medications Allergies Coded Allergies: zolmitriptan (Unverified Allergy, Mild, 05/14/09) Home Medications Sulfamethoxazole/Trimethoprim 1 Each Tablet, 1 EACH PO BID Prescribed by: JAMES VIDAL on 05/14/19 3507 Patient Home Medication List Home Medication List Reviewed: Yes Review of Systems Review of Systems Constitutional: no symptoms reported, see HPI Gastrointestinal: no symptoms reported, see HPI; No diarrhea, No vomiting Genitourinary: see HPI, dysuria, frequency, flank pain : No All Other Systemes Reviewed Negative Unless Noted: Yes Past Euqjrdz-Kcbrfh-Caiwam Hx Past Med/Social Hx: Reviewed Nursing Past Med/Soc Hx Patient Social History Alcohol Use: Regular Use Number of Drinks Today: 1 Alcohol Beverage of Choice: Vodka Recreational Drug Use: No Smoking Status: Current Everyday Smoker Type Used: Cigarettes Recent Foreign Travel: No Contact w/Someone Who Travel: No Recent Infectious Disease Expo: No Recent Hopitalizations: No Immunizations Up To Date Tetanus Booster (TDap): Less than 5yrs PED Vaccines UTD: Yes Date of Influenza Vaccine: May 16, 2012 Seasonal Allergies Seasonal Allergies: No Past Medical History Surgeries: No Respiratory: No Cardiac: No Neurological: No Reproductive Disorders: No Female Reproductive Disorders: Denies Sexually Transmitted Disease: No HIV/AIDS: No Genitourinary: Yes Kidney Infection, Bladder Infection Gastrointestinal: No Gastroesophageal Reflux Musculoskeletal: No Endocrine: No HEENT: No Loss of Vision: Denies Hearing Impairment: Denies Cancer: No Psychosocial: No Integumentary: No Blood Disorders: No Adverse Reaction/Blood Tranf: No Family Medical History Diabetes mellitus 19 FATHER FH: COPD (chronic obstructive pulmonary disease) 19 MOTHER maternal grandmother, Onset:Unknown Hepatitis C 19 FATHER Hypertension 19 MOTHER, Onset:Unknown maternal grandmother, Onset:Unknown Myocardial infarction maternal grandmother, Onset:Unknown Urinary tract infection 19 MOTHER, Onset:Unknown Physical Exam Vital Signs Vital Signs - First Documented 05/14/19 15:02 Temp 36.9 Pulse 99 Resp 17 B/P (MAP) 121/81 (94) Pulse Ox 98 O2 Delivery Room Air Capillary Refill : Less Than 3 Seconds Height, Weight, BMI Height: 5'9.00" Weight: 150lbs. 6.0oz. 68.958054rd; 27.00 BMI Method:Stated General Appearance: WD/WN, no apparent distress Cardiovascular: normal peripheral pulses, regular rate, rhythm Respiratory: chest non-tender, lungs clear, normal breath sounds Gastrointestinal: normal bowel sounds, non tender, soft Back: CVA tenderness (R), CVA tenderness (L) Extremities: normal range of motion, non-tender, normal inspection Neurologic/Psychiatric: no motor/sensory deficits, alert, normal mood/affect, oriented x 3 Skin: normal color, warm/dry Progress/Results/Core Measures Suspected Sepsis Recent Fever Within 48 Hours: No Infection Criteria Present: Suspected New Infection New/Unexplained Altered Menta: No Sepsis Screen: No Definite Risk SIRS Temperature: Pulse: 99 Respiratory Rate: 17 Blood Pressure 121 /81 Mean: 94 Results/Orders Lab Results Laboratory Tests Test 05/14/19 15:07 Range/Units Urine Color YELLOW Urine Clarity CLEAR Urine pH 7.0 5-9 Urine Specific [place] 1.020 1.016-1.022 Urine Protein 2+ H NEGATIVE Urine Glucose (UA) NEGATIVE NEGATIVE Urine Ketones NEGATIVE NEGATIVE Urine Nitrite POSITIVE NEGATIVE Urine Bilirubin NEGATIVE NEGATIVE Urine Urobilinogen 0.2 < = 1.0 MG/DL Urine Leukocyte Esterase 3+ H NEGATIVE Urine RBC (Auto) 2+ H NEGATIVE Urine RBC 5-10 H /HPF Urine WBC TNTC H /HPF Urine Squamous Epithelial Cells RARE /HPF Urine Crystals NONE /LPF Urine Bacteria TRACE /HPF Urine Casts NONE /LPF Urine Mucus NEGATIVE /LPF Urine Culture Indicated YES My Orders Orders - JAMES VIDAL Urine Bedside (05/14/19 14:56) Ua Culture If Indicated (05/14/19 14:56) Urine Culture (05/14/19 15:07) Vital Signs/I&O 05/14/19 05/14/19 15:02 16:22 Temp 36.9 36.9 Pulse 99 93 Resp 17 18 B/P (MAP) 121/81 (94) 124/82 (94) Pulse Ox 98 100 O2 Delivery Room Air Room Air Capillary Refill : Less Than 3 Seconds Blood Pressure Mean: 94 POS Departure Impression Primary Impression: Urinary tract infection Qualified Codes: N30.01 - Acute cystitis with hematuria Disposition: HOME, SELF-CARE Condition: Improved Departure-Patient Inst. Decision time for Depature: 16:15 Referrals: NO,LOCAL PHYSICIAN (PCP/Family) Primary Care Physician Patient Instructions: Urinary Tract Infection, Adult (DC) Add. Discharge Instructions: Take antibiotic as prescribed. You may alternate between ibuprofen 600 mg and Tylenol 650 mg every 4 hours for pain or fever. Follow-up with primary care provider if symptoms are not improving or worsen. Increase water intake, 16 ounces every 2 hours while awake. Empty bladder every 2 hours while awake. Drink 1 cup of cranberry juice or eat 1 cup of fresh blueberries daily. Return to emergency department for new, urgent health care problems. All discharge instructions reviewed with patient and/or family. Voiced understanding. Scripts Sulfamethoxazole/Trimethoprim (Bactrim Ds Tablet) 1 Each Tablet 1 EACH PO BID for 7 Days, #14 TAB Prov: JAMES VIDAL 05/14/19 JAMES VIDAL May 14, 2019 16:16 POS
[2019-05-14 16:22] VITALS: BP 124/82
== END 2019-05-14 16:22 | disposition home or self-care (01) ==
LOC: EDUNIT# 14:44 → ER 14:45
DX: N39.0 Urinary tract infection, site not specified (principal); K21.9 Gastro-esophageal reflux disease without esophagitis; F17.210 Nicotine dependence, cigarettes, uncomplicated; Z88.8 Allergy status to other drugs, medicaments and biological substances; Z82.49 Family history of ischemic heart disease and other diseases of the circulatory system
CPT/HCPCS: 81000; 84703; 87077; 87088; 87186; 99282

== ENCOUNTER 2019-05-16 12:57 | Observation (INO) | payer SELFPAY ==
[~2019-05-16] VITALS: Ht 167.7 cm; Wt 83.0 kg
[~2019-05-16 12:57] MED LIST changes: +SULF1TAB35 PO
[2019-05-16] MEDS ORDERED: NS IV 1000 ML 1,000 ML IV ONE (13:31)
[2019-05-16] MEDS ORDERED: ONDANSETRON 4 MG/2 ML (SDV) Z0FRAN IVP ONE (13:45)
[2019-05-16 13:57] LABS: BASOPHILS % (AUTO) 0 % (0-10); EOSINOPHILS % (AUTO) 0 % (0-10); HEMATOCRIT 38 % (35-52); HEMOGLOBIN 12.3 G/DL (11.5-16.0); LYMPHOCYTES # (AUTO) 0.4 X 10^3 (1.0-4.0); LYMPHOCYTES % (AUTO) 4 % (12-44); MEAN CORPUSCULAR HEMOGLOBIN 31 PG (25-34); MEAN CORPUSCULAR HGB CONC 32 G/DL (32-36); MEAN CORPUSCULAR VOLUME 95 FL (80-99); MEAN PLATELET VOLUME 10.5 FL (7.4-10.4); MONOCYTES # (AUTO) 1.2 X 10^3 (0.0-1.0); MONOCYTES % (AUTO) 10 % (0-12); NEUTROPHILS # (AUTO) 10.1 X 10^3 (1.8-7.8); NEUTROPHILS % (AUTO) 86 % (42-75); PLATELET COUNT 169 10^3/uL (130-400); RED CELL DISTRIBUTION WIDTH 12.4 % (10.0-14.5); WHITE BLOOD COUNT 11.7 10^3/uL (4.3-11.0)
--- NOTE | 2019-05-16 13:57 | NUR ---
PATIENT REPORTS THAT HER LAST ALCOHOLIC DRINK WAS 6 DAYS AGO.
[2019-05-16 14:02] LABS: BILIRUBIN,URINE NEGATIVE (NEGATIVE); CLARITY,URINE CLEAR; COLOR,URINE YELLOW; GLUCOSE, URINE (UA) NEGATIVE (NEGATIVE); KETONES,URINE 1+ (NEGATIVE); LEUKOCYTE ESTERASE ,URINE 1+ (NEGATIVE); NITRITE,URINE NEGATIVE (NEGATIVE); PROTEIN,URINE 2+ (NEGATIVE)
--- NOTE | 2019-05-16 14:20 | NUR ---
PATIENT REQUESTIN FOOD NOW THAT SHE IS FEELING BETTER TALKED WITH DR WILL START WITH CLEAR LIQUIDS FIRST. ICE WATER GIVEN.
[2019-05-16 14:21] LABS: ALANINE AMINOTRANSFERASE 11 U/L (0-55); ALBUMIN 3.4 GM/DL (3.2-4.5); ALKALINE PHOSPHATASE 121 U/L (40-136); BILIRUBIN,TOTAL 0.5 MG/DL (0.1-1.0); BUN/CREATININE RATIO 11; CALCIUM 9.9 MG/DL (8.5-10.1); CARBON DIOXIDE 25 MMOL/L (21-32); CHLORIDE 98 MMOL/L (98-107); CREATININE SERUM 0.98 MG/DL (0.60-1.30); GFR ESTIMATED > 60; GLUCOSE 114 MG/DL (70-105); POTASSIUM 3.5 MMOL/L (3.6-5.0); SODIUM 133 MMOL/L (135-145); TOTAL PROTEIN 6.7 GM/DL (6.4-8.2)
[2019-05-16 14:29] LABS: BACTERIA,URINE MODERATE /HPF; RBC,URINE 0-2 /HPF; WBC,URINE 50-100 /HPF
[2019-05-16] MEDS ORDERED: KETOROLAC 30 MG/ML VIAL IVP ONE (15:00)
[2019-05-16] MEDS ORDERED: cefTRIAXone FOR IV USE 1,000 MG in WATER (STERILE) FOR INJECTION 10 ML IV ONE (15:00)
[2019-05-16 15:02] LABS: INR 1.1 (0.8-1.4); PROTHROMBIN TIME PATIENT 14.8 SEC (12.2-14.7)
[2019-05-16 15:09] LABS: BAND NEUTROPHILS 17 %; LYMPHOCYTES % (MANUAL) 1 %; MONOCYTES % (MANUAL) 6 %; NEUTROPHILS % (MANUAL) 76 %; SPHEROCYTES SLIGHT; TOXIC GRANULATION/VACUOLAZATIO 3+
--- NOTE | 2019-05-16 15:38 | Diagnostic Imaging Report ---
PROCEDURE: CT urinary tract, rule out kidney stone. TECHNIQUE: Multiple contiguous axial images were obtained through the abdomen and pelvis without the use of intravenous contrast. Auto Exposure Controls were utilized during the CT exam to meet ALARA standards for radiation dose reduction. INDICATION: Bilateral flank pain and hematuria. Correlation is made with prior CT from 09/05/2014. FINDINGS: The lung bases are clear. The liver and gallbladder are unremarkable. No biliary ductal dilatation is seen. The pancreas and spleen are unremarkable. No adrenal mass is detected. No renal calculus or hydronephrosis is detected. No ureteral or bladder calculi are seen. There is minimal inflammatory stranding identified adjacent to the upper and lower pole of the left kidney. No perinephric or intraparenchymal fluid collection or abscess is seen. The small and large bowel loops are normal caliber. No obstruction is detected. The uterus and ovaries are unremarkable. Trace free fluid in the pelvis is noted which may be physiologic. The bony structures are nonacute. IMPRESSION: 1. No evidence of urinary tract calculi or obstruction. There does appear to be some inflammatory stranding adjacent to the left kidney. The possibility of pyelonephritis cannot be entirely excluded. No intraparenchymal abscess is seen. Correlation with urinalysis is recommended. No other significant abnormality is identified. Dictated by: Dictated on workstation # [id number]
--- NOTE | 2019-05-16 15:54 | ED General ---
General Chief Complaint: General Problems/Pain Stated Complaint: NAUSUA/COLD Nursing Triage Note: AMB TO ROOM WITH MALE AND CHILD. PATIENT REPORTS THAT. WAS SEEN 2 DAYS AGO DX WITH UTI . IS ON BACTRIM REPORTS IS COLD AND HAVING NAUSEA. WAS DRINKING COFFEE ON ADMIT REPORTS IS ABLE TO DRINK WITHOUT PROBLEM. Nursing Sepsis Screen: No Definite Risk Source of Information: Patient, Old Records Exam Limitations: No Limitations History of Present Illness Date Seen by Provider: May 16, 2019 Time Seen by Provider: 13:20 Initial Comments This 29-year-old young lady presents to the emergency room with complaints of pain in the left lower back and left abdomen accompanied by nausea. She generally feels ill. She is tachycardic and flushed. She was diagnosed with urinary tract infection 2 days ago. Urine culture was reviewed and shows sensitivity to Bactrim which she has been on this since her diagnosis. She describes generalized muscle cramping, myalgia, arthralgia, and chills without a measurable fever. She has not taken any analgesics today. When symptoms first started several days ago she experienced gross hematuria which has now improved. The more systemic symptoms have developed over the past couple of days. Urinary symptoms were actually present for several days prior to diagnosis of urinary tract infection. Allergies and Home Medications Allergies Coded Allergies: zolmitriptan (Unverified Allergy, Mild, 05/14/09) Patient Home Medication List Home Medication List Reviewed: Yes Review of Systems Review of Systems Constitutional: see HPI EENTM: no symptoms reported Respiratory: no symptoms reported Cardiovascular: see HPI Gastrointestinal: see HPI Genitourinary: see HPI : No Musculoskeletal: see HPI Skin: no symptoms reported Psychiatric/Neurological: Headache Hematologic/Lymphatic: No Symptoms Reported Immunological/Allergic: no symptoms reported Past Xqdkmbm-Ngusvv-Kgmdfa Hx Past Med/Social Hx: Reviewed and Corrections made Patient Social History Alcohol Use: Regular Use Number of Drinks Today: FF Alcohol Beverage of Choice: Vodka Recreational Drug Use: No (SMOKES 1/2 PPD) Smoking Status: Current Everyday Smoker Type Used: Cigarettes Recent Foreign Travel: No Contact w/Someone Who Travel: No Recent Infectious Disease Expo: No Recent Hopitalizations: No Immunizations Up To Date Tetanus Booster (TDap): Less than 5yrs PED Vaccines UTD: Yes Date of Influenza Vaccine: May 16, 2012 Seasonal Allergies Seasonal Allergies: No Past Medical History Surgeries: No Respiratory: No Cardiac: No Neurological: Yes Headaches /Migraines Reproductive Disorders: No Female Reproductive Disorders: Denies Sexually Transmitted Disease: No HIV/AIDS: No Genitourinary: Yes Kidney Infection, Bladder Infection Gastrointestinal: Yes Gastroesophageal Reflux Musculoskeletal: No Endocrine: No HEENT: No Loss of Vision: Denies Hearing Impairment: Denies Cancer: No Psychosocial: No Integumentary: No Blood Disorders: No Adverse Reaction/Blood Tranf: No Family Medical History Reviewed Nursing Family Hx Diabetes mellitus 19 FATHER FH: COPD (chronic obstructive pulmonary disease) 19 MOTHER maternal grandmother, Onset:Unknown Hepatitis C 19 FATHER Hypertension 19 MOTHER, Onset:Unknown maternal grandmother, Onset:Unknown Myocardial infarction maternal grandmother, Onset:Unknown Urinary tract infection 19 MOTHER, Onset:Unknown Physical Exam Vital Signs Vital Signs - First Documented 05/16/19 05/16/19 13:01 16:17 Temp 36.8 Pulse 116 Resp 18 B/P (MAP) 121/74 (90) Pulse Ox 98 O2 Delivery Room Air Capillary Refill : Less Than 3 Seconds Height, Weight, BMI Height: 5'9.00" Weight: 150lbs. 6.0oz. 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 Norm as Tested Skin: Warm/Dry, Erythema (flushed skin) Focused Exam Lactate Level 05/16/19 15:07: Lactic Acid Level 0.84 Lactic Acid Level Progress/Results/Core Measures Suspected Sepsis Recent Fever Within 48 Hours: No Infection Criteria Present: None New/Unexplained Altered Menta: No Sepsis Screen: No Definite Risk SIRS Temperature: Pulse: 116 Respiratory Rate: 18 Laboratory Tests 05/16/19 13:45: White Blood Count 11.7H Blood Pressure 121 /74 Mean: 90 05/16/19 15:07: Lactic Acid Level 0.84 Laboratory Tests 05/16/19 13:45: Creatinine 0.98, Platelet Count 169, Total Bilirubin 0.5 05/16/19 13:50: INR Comment 1.1 Results/Orders Lab Results Laboratory Tests Test 05/16/19 13:45 05/16/19 13:50 05/16/19 13:55 05/16/19 15:07 Range/Units White Blood Count 11.7 H 4.3-11.0 10^3/uL Red Blood Count 4.01 L 4.35-5.85 10^6/uL Hemoglobin 12.3 11.5-16.0 G/DL Hematocrit 38 35-52 % Mean Corpuscular Volume 95 80-99 FL Mean Corpuscular Hemoglobin 31 25-34 PG Mean Corpuscular Hemoglobin Concent 32 32-36 G/DL Red Cell Distribution Width 12.4 10.0-14.5 % Platelet Count 169 130-400 10^3/uL Mean Platelet Volume 10.5 H 7.4-10.4 FL Neutrophils (%) (Auto) 86 H 42-75 % Lymphocytes (%) (Auto) 4 L 12-44 % Monocytes (%) (Auto) 10 0-12 % Eosinophils (%) (Auto) 0 0-10 % Basophils (%) (Auto) 0 0-10 % Neutrophils # (Auto) 10.1 H 1.8-7.8 X 10^3 Lymphocytes # (Auto) 0.4 L 1.0-4.0 X 10^3 Monocytes # (Auto) 1.2 H 0.0-1.0 X 10^3 Eosinophils # (Auto) 0.0 0.0-0.3 10^3/uL Basophils # (Auto) 0.0 0.0-0.1 10^3/uL Neutrophils % (Manual) 76 % Lymphocytes % (Manual) 1 % Monocytes % (Manual) 6 % Band Neutrophils 17 % Toxic Granulation 3+ Spherocytes SLIGHT Sodium Level 133 L 135-145 MMOL/L Potassium Level 3.5 L 3.6-5.0 MMOL/L Chloride Level 98 98-107 MMOL/L Carbon Dioxide Level 25 21-32 MMOL/L Anion Gap 10 5-14 MMOL/L Blood Urea Nitrogen 11 7-18 MG/DL Creatinine 0.98 0.60-1.30 MG/DL Estimat Glomerular Filtration Rate > 60 BUN/Creatinine Ratio 11 Glucose Level 114 H 70-105 MG/DL Calcium Level 9.9 8.5-10.1 MG/DL Corrected Calcium 10.4 H 8.5-10.1 MG/DL Total Bilirubin 0.5 0.1-1.0 MG/DL Aspartate Amino Transf (AST/SGOT) 13 5-34 U/L Alanine Aminotransferase (ALT/SGPT) 11 0-55 U/L Alkaline Phosphatase 121 40-136 U/L C-Reactive Protein High Sensitivity 43.03 H 0.00-0.50 MG/DL Total Protein 6.7 6.4-8.2 GM/DL Albumin 3.4 3.2-4.5 GM/DL Serum Test, Qualitative NEGATIVE NEGATIVE Prothrombin Time 14.8 H 12.2-14.7 SEC INR Comment 1.1 0.8-1.4 Activated Partial Thromboplast Time 40 H 24-35 SEC Urine Color YELLOW Urine Clarity CLEAR Urine pH 6.0 5-9 Urine Specific Martin 1.020 1.016-1.022 Urine Protein 2+ H NEGATIVE Urine Glucose (UA) NEGATIVE NEGATIVE Urine Ketones 1+ H NEGATIVE Urine Nitrite NEGATIVE NEGATIVE Urine Bilirubin NEGATIVE NEGATIVE Urine Urobilinogen 1.0 < = 1.0 MG/DL Urine Leukocyte Esterase 1+ H NEGATIVE Urine RBC (Auto) TRACE-I NEGATIVE Urine RBC 0-2 /HPF Urine WBC 50-100 H /HPF Urine Squamous Epithelial Cells 5-10 /HPF Urine Crystals NONE /LPF Urine Bacteria MODERATE H /HPF Urine Casts NONE /LPF Urine Mucus SMALL H /LPF Urine Culture Indicated YES Lactic Acid Level 0.84 0.50-2.00 MMOL/L My Orders Orders - JEFFREY MEZA MD Cbc With Automated Diff (05/16/19 13:31) Comprehensive Metabolic Panel (05/16/19 13:31) Hs C Reactive Protein (05/16/19 13:31) Ua Culture If Indicated (05/16/19 13:31) Ed Iv/Invasive Line Start (05/16/19 13:31) Ns Iv 1000 Ml (Sodium Chloride 0.9%) (05/16/19 13:31) Ondansetron Injection (Zofran Injectio (05/16/19 13:45) Manual Differential (05/16/19 13:45) Urine Culture (05/16/19 13:55) Hcg,Qualitative Serum (05/16/19 14:30) Ketorolac Injection (Toradol Injection) (05/16/19 15:00) Ct Abd/Pelvis Wo(Kidney Stone) (05/16/19 14:50) Blood Culture (05/16/19 14:50) Protime With Inr (05/16/19 14:50) Partial Thromboplastin Time (05/16/19 14:50) O2 (05/16/19 14:50) Remove Rings In Anticipation O (05/16/19 14:50) Lactic Acid Analyzer (05/16/19 14:50) Ceftriaxone For Iv Use (Rocephin For I (05/16/19 15:00) Medications Given in ED Current Medications Medications Dose Ordered Sig/Reid Route Start Time Stop Time Status Last Admin Dose Admin Ceftriaxone Sodium 1000 mg/ Sterile Water 10 ml @ 200 mls/hr ONCE ONCE IV 05/16/19 15:00 05/16/19 15:02 DC 05/16/19 15:16 200 MLS/HR Ketorolac Tromethamine 15 mg ONCE ONCE IVP 05/16/19 15:00 05/16/19 15:01 DC 05/16/19 15:02 15 MG Ondansetron HCl 8 mg ONCE ONCE IVP 05/16/19 13:45 05/16/19 13:46 DC 05/16/19 13:47 8 MG Sodium Chloride 1,000 ml @ 0 mls/hr Q0M ONCE IV 05/16/19 13:31 05/16/19 13:33 DC 05/16/19 13:47 1,000 MLS/HR Vital Signs/I&O 05/16/19 05/16/19 05/16/19 05/16/19 13:01 16:17 16:33 18:00 Temp 36.8 38.0 Pulse 116 96 95 Resp 18 18 20 B/P (MAP) 121/74 (90) 113/69 102/68 Pulse Ox 98 98 99 O2 Delivery Room Air Room Air Room Air Capillary Refill : Less Than 3 Seconds Blood Pressure Mean: 90 POS Progress Note : Progress Note Labs were obtained and patient was hydrated with a liter of IV fluid. IV hydration improved her heart rate by more than 20 bpm. Zofran was given for nausea. UA suggested significant persistent infection despite using oral antibiotics. CRP was markedly elevated. Although patient did not meet septic criteria, I am concerned about her possibly having worsening pyelonephritis and at risk for sepsis. She has failed outpatient therapy. Because of the gross hematuria at onset, I'm also concerned about a contributing ureteral stone on the left. Risks and benefits of CT scan were discussed with the patient. She elected to proceed with CT scan. No ureteral stones were identified but there was suspicion of inflammatory changes around the left kidney suggestive of pyelonephritis. Patient was treated with Rocephin after blood cultures were obtained. Patient was agreeable to admission for close observation, IV hydration, and IV antibiotic administration. Diagnostic Imaging Diagonstic Imaging: CT Plain Films/CT/US/NM/MRI: abdomen, pelvis Comments CT abdomen and pelvis viewed by me and report reviewed. See report below: NAME: RAQUEL RAHMAN [facility] REC#: [id number] PT STATUS: REG ER : 1990 PHYSICIAN: JEFFREY MEZA MD ADMIT DATE: 05/16/19/ER Signed Date of Exam:05/16/19 CT ABD/PELVIS WO(KIDNEY STONE) PROCEDURE: CT urinary tract, rule out kidney stone. TECHNIQUE: Multiple contiguous axial images were obtained through the abdomen and pelvis without the use of intravenous contrast. Auto Exposure Controls were utilized during the CT exam to meet ALARA standards for radiation dose reduction. INDICATION: Bilateral flank pain and hematuria. Correlation is made with prior CT from 09/05/2014. FINDINGS: The lung bases are clear. The liver and gallbladder are unremarkable. No biliary ductal dilatation is seen. The pancreas and spleen are unremarkable. No adrenal mass is detected. No renal calculus or hydronephrosis is detected. No ureteral or bladder calculi are seen. There is minimal inflammatory stranding identified adjacent to the upper and lower pole of the left kidney. No perinephric or intraparenchymal fluid collection or abscess is seen. The small and large bowel loops are normal caliber. No obstruction is detected. The uterus and ovaries are unremarkable. Trace free fluid in the pelvis is noted which may be physiologic. The bony structures are nonacute. IMPRESSION: 1. No evidence of urinary tract calculi or obstruction. There does appear to be some inflammatory stranding adjacent to the left kidney. The possibility of pyelonephritis cannot be entirely excluded. No intraparenchymal abscess is seen. Correlation with urinalysis is recommended. No other significant abnormality is identified. Dictated by: Dictated on workstation # [id number] Dict: 05/16/19 1531 Trans: 05/16/19 1604 [id number] Interpreted by: BIBI MCCORMICK MD Electronically signed by: BIBI MCCORMICK MD 05/16/19 1604 Departure Communication (Admissions) Time/Spoke to Admitting Phy: 15:35 Dr. Median Impression Primary Impression: Pyelonephritis, acute Additional Impression: Nausea Disposition: 01 HOME, SELF-CARE Condition: Improved Admissions Decision to Admit Reason: Admit from ER (General) Decision to Admit/Date: May 16, 2019 Time/Decision to Admit Time: 14:50 Departure-Patient Inst. Referrals: NO,LOCAL PHYSICIAN (PCP/Family) Primary Care Physician JEFFREY MEZA MD May 16, 2019 15:54 POS
[2019-05-16 16:33] VITALS: BP 102/68
[2019-05-16] MEDS ORDERED: ACETAMINOPHEN 500 MG TAB (TYLENOL) PO PRN (16:45)
[2019-05-16] MEDS: IBUPROFEN 600 MG (MOTRIN) TAB PO PRN (17:58)
--- NOTE | 2019-05-16 18:00 | NUR ---
Report received from Diana YUEN.
[2019-05-16] MEDS ORDERED: IBUPROFEN 600 MG (MOTRIN) TAB PO PRN (18:15)
[2019-05-16] MEDS ORDERED: MILK OF MAGNESIA 400 MG/5 ML 30 ML UDC PO PRN (18:15)
[2019-05-16] MEDS ORDERED: ONDANSETRON 4 MG (ZOFRAN) ORAL DISSOLVE TAB PO PRN (18:15)
[2019-05-16] MEDS ORDERED: ANTACID SUSP 30 ML UDC (MYLANTA) PO PRN (18:15)
[2019-05-16] MEDS ORDERED: ACETAMINOPHEN 325 MG TABLET PO PRN (18:15)
[2019-05-16] MEDS ORDERED: BISACODYL 10 MG SUPP (DULCOLAX) PR PRN (18:15)
[2019-05-16] MEDS ORDERED: POLYETHYLENE GLYCOL 17 GM (MIRALAX) PACK PO PRN (18:15)
[2019-05-16] MEDS ORDERED: MELATONIN 3 MG TABLET PO PRN (18:15)
[2019-05-16] MEDS: HYDROmorphone 2 MG/ML VIAL (DILAUDID) IV PRN (18:28)
[2019-05-16] MEDS: NS IV 1000 ML 1,000 ML IV SCH (18:28)
--- NOTE | 2019-05-16 18:51 | NUR ---
RAQUEL RAHMAN admitted to room 412-1, with an admitting diagnosis of pyelonephritis, on 05/16/19 from ED via wheelchair, accompanied by staff, and . RAQUEL RAHMAN introduced to surroundings, call light, bed controls, phone, TV, temperature control, lights, meal times, smoking policy, visitor policy, side rail policy, bathrooms and showers. Patient Rights given to patient in the handbook. RAQUEL RAHMAN verbalizes understanding that [facility] is not responsible for the loss or damage to any personal effects or valuables that are kept in the patients possession during their hospitalization. The following Patient Care Plans were discussed with the patient: Discharge Planning, pain management, dehydration, and medications. RAQUEL RAHMAN verbalizes understanding of Interdisciplinary Patient Education. Patient and/or family were informed about the Rapid Response Team and its purpose.
[2019-05-16 19:47] VITALS: BP 102/65
[2019-05-16] MEDS: DOCUSATE SODIUM 100 MG (COLACE) CAP PO SCH (20:35)
[2019-05-16] MEDS: SENNOSIDES 8.6 MG (SENOKOT) TAB PO SCH (20:35)
[2019-05-16] MEDS: ENOXAPARIN 40 MG/0.4 ML (LOVENOX) SYR SC SCH (20:36)
[2019-05-16 23:40] VITALS: BP 103/64
[2019-05-17 04:15] VITALS: BP 98/59
[2019-05-17] MEDS: NS IV 1000 ML 1,000 ML IV SCH (04:56)
[2019-05-17 06:07] LABS: BASOPHILS % (AUTO) 0 % (0-10); EOSINOPHILS # (AUTO) 0.1 10^3/uL (0.0-0.3); EOSINOPHILS % (AUTO) 2 % (0-10); HEMATOCRIT 32 % (35-52); HEMOGLOBIN 10.3 G/DL (11.5-16.0); LYMPHOCYTES # (AUTO) 0.8 X 10^3 (1.0-4.0); LYMPHOCYTES % (AUTO) 11 % (12-44); MEAN CORPUSCULAR HEMOGLOBIN 30 PG (25-34); MEAN CORPUSCULAR HGB CONC 32 G/DL (32-36); MEAN CORPUSCULAR VOLUME 95 FL (80-99); MEAN PLATELET VOLUME 11.1 FL (7.4-10.4); MONOCYTES % (AUTO) 13 % (0-12); NEUTROPHILS # (AUTO) 5.6 X 10^3 (1.8-7.8); NEUTROPHILS % (AUTO) 74 % (42-75); PLATELET COUNT 157 10^3/uL (130-400); RED CELL DISTRIBUTION WIDTH 12.9 % (10.0-14.5); WHITE BLOOD COUNT 7.6 10^3/uL (4.3-11.0)
[2019-05-17 06:29] LABS: BUN/CREATININE RATIO 11; CALCIUM 8.4 MG/DL (8.5-10.1); CARBON DIOXIDE 21 MMOL/L (21-32); CHLORIDE 105 MMOL/L (98-107); CREATININE SERUM 0.93 MG/DL (0.60-1.30); GFR ESTIMATED > 60; GLUCOSE 102 MG/DL (70-105); MAGNESIUM 1.8 MG/DL (1.6-2.4); POTASSIUM 3.2 MMOL/L (3.6-5.0); SODIUM 137 MMOL/L (135-145)
[2019-05-17 08:00] VITALS: BP 115/72
[2019-05-17] MEDS ORDERED: KCL 20 MEQ TAB (K-DUR) PO NR (08:00)
[2019-05-17] MEDS ORDERED: SULF-222 PO (08:23)
[2019-05-17] MEDS ORDERED: cefTRIAXone 1,000 MG/SWFI 10 ML IV PUSH IV SCH ×2 (09:00)
[2019-05-17] MEDS: SENNOSIDES 8.6 MG (SENOKOT) TAB PO SCH ×2 (09:51→20:09)
[2019-05-17] MEDS: cefTRIAXone FOR IV USE 2,000 MG in WATER (STERILE) FOR INJECTION 20 ML IV SCH (09:51)
[2019-05-17] MEDS: DOCUSATE SODIUM 100 MG (COLACE) CAP PO SCH ×2 (09:51→20:09)
[2019-05-17] MEDS: ONDANSETRON 4 MG/2 ML (SDV) Z0FRAN IV PRN ×2 (10:53→20:23)
--- NOTE | 2019-05-17 11:01 | NUR ---
NOTE THAT PT GOT ONE TIME ORDER OF PO K++ -- PT THAN C/O INDIGESTION GAVE PRN MYLANTA -- THAN PT VOICED NAUSEA AND PT REQUESTED AND WAS GIVEN IV ZOFRAN 40 MG PRN -- DR LOVELL WAS MDE AWARE
[2019-05-17] MEDS ORDERED: CATHETER FLUSH 10 ML SYR IV PRN (11:15)
[2019-05-17 11:20] VITALS: BP 121/76
[2019-05-17] MEDS: IBUPROFEN 600 MG (MOTRIN) TAB PO PRN (12:10)
--- NOTE | 2019-05-17 13:57 | History & Physical-Hospitalist ---
History of Present Illness HPI/Chief Complaint Nena Valentino is a 29yoF who presented with fevers and tachycardia. She was recently diagnosed with a urinary tract infection and started taking Bactrim. She has not started feeling better since starting the antibiotics. She has developed left sided flank and abdominal pain. She denies chest pain and dyspnea. She reports nausea, but no vomiting. Source: patient Exam Limitations: no limitations Date Seen 05/17/19 Time Seen by a Provider: 10:15 Attending Physician Arlene Lovell MD PCP No,Local Physician Referring Physician Date of Admission May 16, 2019 at 15:52 Home Medications & Allergies Home Medications Reviewed patient Home Medication Reconciliation performed by pharmacy medication reconciliations central office technician and/or nursing. Patients Allergies have been reviewed. Allergies Allergies Coded Allergies zolmitriptan (Unverified Allergy, Mild, 05/14/09) Past Aigwiae-Wqofhe-Iuquje Hx Past Med/Social Hx: Reviewed Nursing Past Med/Soc Hx Patient Social History Alcohol Use: Regular Use Number of Drinks Today: FF Alcohol Beverage of Choice: Vodka Recreational Drug Use: No (SMOKES 1/2 PPD) Smoking Status: Current Everyday Smoker Type Used: Cigarettes Recent Foreign Travel: No Contact w/other who traveled: No Recent Hopitalizations: No Recent Infectious Disease Expo: No Immunizations Up To Date Tetanus Booster (TDap): Less than 5yrs Pediatric: Yes Date of Influenza Vaccine: May 16, 2012 Seasonal Allergies Seasonal Allergies: No Past Medical History Neurological: Headaches /Migraines Reproductive: No Sexually Transmitted Disease: No HIV/AIDS: No Female Reproductive Disorders: Denies Genitourinary: Kidney Infection, Bladder Infection Gastrointestinal: Gastroesophageal Reflux Loss of Vision: Denies Hearing Impairment: Denies History of Blood Disorders: No Adverse Reaction to Blood Feng: No Family History Reviewed Nursing Family Hx Diabetes mellitus 19 FATHER FH: COPD (chronic obstructive pulmonary disease) 19 MOTHER maternal grandmother, Onset:Unknown Hepatitis C 19 FATHER Hypertension 19 MOTHER, Onset:Unknown maternal grandmother, Onset:Unknown Myocardial infarction maternal grandmother, Onset:Unknown Urinary tract infection 19 MOTHER, Onset:Unknown Review of Systems Constitutional: fever, malaise EENTM: no symptoms reported Respiratory: no symptoms reported Cardiovascular: no symptoms reported Gastrointestinal: abdominal pain, nausea Genitourinary: dysuria Musculoskeletal: back pain Skin: no symptoms reported Psychiatric/Neurological: No Symptoms Reported Physical Exam Physical Exam Vital Signs Vital Signs - First Documented 05/16/19 05/16/19 13:01 16:17 Temp 36.8 Pulse 116 Resp 18 B/P (MAP) 121/74 (90) Pulse Ox 98 O2 Delivery Room Air Capillary Refill : Less Than 3 Seconds Height, Weight, BMI Height: 5'9.00" Weight: 150lbs. 6.0oz. 68.314675jb; 28.97 BMI Method:Stated General Appearance: No Apparent Distress, WD/WN HEENT: PERRL/EOMI, Pharynx Normal Neck: Normal Inspection, Supple Respiratory: Lungs Clear, Normal Breath Sounds, No Respiratory Distress Cardiovascular: Regular Rate, Rhythm, No Edema, No Murmur Gastrointestinal: Normal Bowel Sounds, Soft, Tenderness Back: Normal Inspection, No CVA Tenderness Extremity: Normal Inspection, Non Tender, No Pedal Edema Neurologic/Psychiatric: Alert, Oriented x3, No Motor/Sensory Deficits, Normal Mood/Affect Skin: Normal Color, Warm/Dry Lymphatic: No Adenopathy Results Results/Procedures Labs Laboratory Tests 05/16/19 13:45 05/17/19 05:15 Patient resulted labs reviewed. Imaging: Reviewed Imaging Report Assessment/Plan Admission Diagnosis Sepsis due to pyelonephritis Admission Status: Observation Assessment and Plan Sepsis due to pyelonephritis -Recent UA consistent with UTI -Urine culture growing E coli -CT Abdomen revealed pyelonephritis -Started on Rocephin, increase to 2 g daily -Blood cultures pending -Discontinue IV fluids, tolerating oral intake Hypokalemia Hyponatremia, resolved -K 3.2 this morning -Monitor and replace as needed DVT Prophylaxis: Lovenox Diagnosis/Problems Diagnosis/Problems (1) Sepsis due to urinary tract infection Status: Acute (2) Pyelonephritis Status: Acute (3) Hypokalemia Status: Acute Clinical Quality Measures DVT/VTE Risk/Contraindication: Risk Factor Score Per Nursin RFS Level Per Nursing on Admit: 2=Moderate ARLENE LOVELL MD May 17, 2019 13:57 POS
[2019-05-17] MEDS: CATHETER FLUSH 10 ML SYR IV SCH ×3 (14:21→22:40)
[2019-05-17 16:54] VITALS: BP 113/69
[2019-05-17] MEDS: ENOXAPARIN 40 MG/0.4 ML (LOVENOX) SYR SC SCH (18:53)
[2019-05-17 20:00] VITALS: BP 128/96
[2019-05-17] MEDS: HYDROmorphone 2 MG/ML VIAL (DILAUDID) IV PRN (20:10)
[2019-05-17 23:35] VITALS: BP 121/62
[2019-05-18 04:40] VITALS: BP_SYST 113; BP_SYST 152; BP_DIAS 65; BP_DIAS 67
[2019-05-18 07:40] LABS: BUN/CREATININE RATIO 6; CALCIUM 8.9 MG/DL (8.5-10.1); CARBON DIOXIDE 23 MMOL/L (21-32); CHLORIDE 103 MMOL/L (98-107); GFR ESTIMATED > 60; GLUCOSE 99 MG/DL (70-105); POTASSIUM 3.6 MMOL/L (3.6-5.0); SODIUM 137 MMOL/L (135-145)
[2019-05-18 08:00] VITALS: BP 114/68
--- NOTE | 2019-05-18 08:15 | NUR ---
Initial visit by Tuber Helpertabby Vicente: Engaged in rapport building and educated about Spiritual Care Services. Pt's family is [employer]ist Offered active listening.
[2019-05-18] MEDS: DOCUSATE SODIUM 100 MG (COLACE) CAP PO SCH (09:14)
[2019-05-18] MEDS: SENNOSIDES 8.6 MG (SENOKOT) TAB PO SCH (09:14)
[2019-05-18] MEDS: cefTRIAXone FOR IV USE 2,000 MG in WATER (STERILE) FOR INJECTION 20 ML IV SCH (09:14)
[2019-05-18] MEDS ORDERED: ONDN4T PO (09:24)
[2019-05-18] MEDS ORDERED: CEFD300C3 PO (09:24)
--- NOTE | 2019-05-18 09:28 | Discharge Summary ---
Discharge Summary Hospital Course Was the Problem List Reviewed?: Yes Problems/Dx: (1) Sepsis due to urinary tract infection Status: Resolved (2) Pyelonephritis Status: Acute (3) Hypokalemia Status: Resolved Hospital Course Date of Admission: May 16, 2019 at 15:52 Admission Diagnosis : Sepsis due to pyelonephritis Family Physician/Provider: Lisa,Local Physician Date of Discharge: 05/18/19 Discharge Diagnosis: Sepsis due to pyelonephritis Hospital Course: Nena Valetnino is a 29yoF who presented with fevers and was admitted with sepsis due to pyelonephritis. She was treated with IV Rocephin and discharged with a course of oral Omnicef. She should follow up with her primary doctor in 1-2 weeks. Labs and Pending Lab Test: Laboratory Tests 05/18/19 06:57: Sodium Level 137, Potassium Level 3.6, Chloride Level 103, Carbon Dioxide Level 23, Anion Gap 11, Blood Urea Nitrogen 5L, Creatinine 0.80, Estimat Glomerular Filtration Rate > 60, BUN/Creatinine Ratio 6, Glucose Level 99, Calcium Level 8.9 Microbiology 05/16/19 Blood Culture - Preliminary, Resulted No growth Home Meds Active Zofran (Ondansetron HCl) 4 Mg Tab 4 Mg PO Q6H PRN 7 Days Cefdinir 300 Mg Capsule 300 Mg PO BID 10 Days Reported Sulfamethoxazole-Tmp Ds Tablet (Sulfamethoxazole/Trimethoprim) 1 Each Tablet 1 Tab PO BID 7 Days 7 DAY SUPPLY FILLED 05-14-19 Assessment/Pt Instructions Take medications as prescribed. Complete your antibiotics even if you are feeling better. Follow up with your primary doctor in 1-2 weeks. Discharge Planning: <30 minutes discharge planning Discharge Instructions Discharge Diet: No Restrictions Activity as Tolerated: Yes Discharge Physical Examination Vital Signs Vital Signs Date Time Temp Pulse Resp B/P (MAP) Pulse Ox O2 Delivery O2 Flow Rate FiO2 05/18/19 08:00 37.0 79 20 114/68 (83) 98 Room Air General Appearance: No Apparent Distress, WD/WN HEENT: PERRL/EOMI, Pharynx Normal Respiratory: Lungs Clear, Normal Breath Sounds, No Respiratory Distress Cardiovascular: Regular Rate, Rhythm, No Edema, No Murmur Gastrointestinal: Normal Bowel Sounds, Non Tender, Soft Extremity: Normal Inspection, Non Tender Skin: Warm/Dry Neurologic/Psychiatric: Alert, Oriented x3 Allergies: Coded Allergies: zolmitriptan (Unverified Allergy, Mild, 05/14/09) Discharge Summary Date of Admission May 16, 2019 at 15:52 Date of Discharge Discharge Date: May 18, 2019 Discharge Time: 09:27 Admission Diagnosis Sepsis due to pyelonephritis Discharge Diagnosis Sepsis due to pyelonephritis (1) Sepsis due to urinary tract infection Status: Resolved (2) Pyelonephritis Status: Acute (3) Hypokalemia Status: Resolved Clinical Quality Measures DVT/VTE Risk/Contraindication: Risk Factor Score Per Nursin RFS Level Per Nursing on Admit: 2=Moderate GUANAKITO LOVELL MD May 18, 2019 09:28 POS
== END 2019-05-18 09:23 | disposition home or self-care (01) ==
LOC: EDUNIT# 12:57 → ER 12:59 → UNDOADMOB 15:52 → 4TH 15:52 → UNDODISOB 05-18 10:17
PROVIDERS: ADMIT Internal Medicine; ATTEND Internal Medicine
DX: A41.9 Sepsis, unspecified organism (principal); N12 Tubulo-interstitial nephritis, not specified as acute or chronic; E87.6 Hypokalemia; F17.210 Nicotine dependence, cigarettes, uncomplicated; K21.9 Gastro-esophageal reflux disease without esophagitis; G43.909 Migraine, unspecified, not intractable, without status migrainosus; Z88.8 Allergy status to other drugs, medicaments and biological substances; Z82.5 Family history of asthma and other chronic lower respiratory diseases; Z82.49 Family history of ischemic heart disease and other diseases of the circulatory system; Z84.1 Family history of disorders of kidney and ureter; Z83.3 Family history of diabetes mellitus
CPT/HCPCS: 36415; 74176; 80048; 80053; 81000; 83605; 83735; 84703; 85007; 85025; 85027; 85610; 85730; 86141; 87040; 87088; 96361; 96374; 96375; G0378

== ENCOUNTER 2020-06-12 12:46 | Emergency (ER) | payer SELFPAY ==
[~2020-06-12] VITALS: Ht 167.7 cm; Wt 81.8 kg
[~2020-06-12 12:46] MED LIST changes: +CEFD300C3 PO; +ONDN4T PO; +SULF-222 PO
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
--- NOTE | 2020-06-12 13:18 | NUR ---
PCXR DONE Addendum: 06/12/20 at 1325 by PMCCLURE DECLINED CXR
--- NOTE | 2020-06-12 14:28 | NUR ---
IN [facility] DISCUSSING LAB WITH PATIETNT
[2020-06-12 14:36] VITALS: BP 142/111
--- NOTE | 2020-06-12 14:36 | NUR ---
OXY MASK REMOVE 5 MIN BEFORE GOING HOME.
== END 2020-06-12 14:36 | disposition home or self-care (01) ==
LOC: EDUNIT# 12:46 → ER 12:48
DX: R07.89 Other chest pain (principal); L53.8 Other specified erythematous conditions; T59.811A Toxic effect of smoke, accidental (unintentional), initial encounter; Z83.3 Family history of diabetes mellitus; Z82.49 Family history of ischemic heart disease and other diseases of the circulatory system; Z88.8 Allergy status to other drugs, medicaments and biological substances
CPT/HCPCS: 82375; 93005

== ENCOUNTER → 2022-07-18 | Outpatient (CLI) | payer BC ==
[~2022-07-18] MED LIST changes: -SULF1TAB35 PO; +SULF1TAB38 PO
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
== END ==
LOC: RAD 16:35
PROVIDERS: ATTEND Registered Nurse Critical Care Medicine
DX: S60.221A Contusion of right hand, initial encounter (principal); S62.396A Other fracture of fifth metacarpal bone, right hand, initial encounter for closed fracture; M79.89 Other specified soft tissue disorders; J00 Acute nasopharyngitis [common cold]; U07.1 COVID-19; M79.18 Myalgia, other site; W54.1XXA Struck by dog, initial encounter
CPT/HCPCS: 73130

== ENCOUNTER 2022-10-07 15:18 | Emergency (ER) | payer BC ==
[~2022-10-07] VITALS: Ht 172 cm; Wt 84.8 kg
--- NOTE | 2022-10-07 15:41 | ED Upper Extremity ---
General Chief Complaint: Upper Extremity Stated Complaint: HIT RIGHT HAND ON DOOR VICKIE Nursing Triage Note: pt had extensive surgery on her hand earlier this year and is only 6 days post-op from hardware removal (1 plate, 9 screws, and 3 pins). today, pt accidentally hit her hand on car door and now has significant pain. [address] Source: patient Exam Limitations: no limitations History of Present Illness Date Seen by Provider: Oct 07, 2022 Time Seen by Provider: 15:32 Initial Comments 32-year-old female presents to the ED with complaints of right hand pain. She states approximately 30 minutes ago, she hit her hand on the door handle. She had surgery on this hand in July after a fracture and had hardware placed. She had surgery again 6 days ago to remove the hardware. She was told to be careful, and she wants to just be checked out to make sure she did not mess anything up. Past medical history includes hypertension, currently takes lisinopril. Allergies and Home Medications Allergies Coded Allergies: zolmitriptan (Unverified Allergy, Mild, 05/14/09) Patient Home Medication List Home Medication List Reviewed: Yes Cefdinir (Cefdinir) 300 Mg Capsule, 300 MG PO BID Prescribed by: GUANAKITO LOVELL on 05/18/19923 Ondansetron HCl (Zofran) 4 Mg Tab, 4 MG PO Q6H PRN for NAUSEA/VOMITING Prescribed by: GUANAKITO LOVELL on 05/18/19923 Review of Systems Constitutional: no symptoms reported Respiratory: no symptoms reported Cardiovascular: no symptoms reported Musculoskeletal: other (Right hand pain) Past Eovhhfo-Opkoaw-Axucbm Hx Patient Social History Tobacco Use?: Yes Tobacco type used: Cigarettes Substance use?: No Alcohol Use?: No Pt feels they are or have been: No Immunizations Up To Date Tetanus Booster (TDap): Less than 5yrs PED Vaccines UTD: Yes Influenza Vaccine Up-to-Date: No; Not Current Seasonal Allergies Seasonal Allergies: No Past Medical History Surgeries: No Respiratory: No Cardiac: No Neurological: Yes Headaches /Migraines Reproductive Disorders: No Female Reproductive Disorders: Denies Sexually Transmitted Disease: No HIV/AIDS: No Genitourinary: Yes Kidney Infection, Bladder Infection Gastrointestinal: Yes Gastroesophageal Reflux Musculoskeletal: No Endocrine: No HEENT: No Loss of Vision: Denies Hearing Impairment: Denies Cancer: No Psychosocial: No Integumentary: No Blood Disorders: No Adverse Reaction/Blood Tranf: No Family Medical History Diabetes mellitus 19 FATHER FH: COPD (chronic obstructive pulmonary disease) 19 MOTHER maternal grandmother, Onset:Unknown Hepatitis C 19 FATHER Hypertension 19 MOTHER, Onset:Unknown maternal grandmother, Onset:Unknown Myocardial infarction maternal grandmother, Onset:Unknown Urinary tract infection 19 MOTHER, Onset:Unknown Physical Exam Vital Signs Vital Signs - First Documented 10/07/22 15:30 Temp 36.1 Pulse 87 Resp 18 B/P (MAP) 196/120 (145) Pulse Ox 98 O2 Delivery Room Air Capillary Refill : Height, Weight, BMI Height: 5'9.00" Weight: 150lbs. 6.0oz. 68.185392fw; 28.00 BMI Method:Stated General Appearance: WD/WN, no apparent distress Neck: supple, normal inspection Cardiovascular: regular rate, rhythm, no gallop, no JVD, no murmur Respiratory: lungs clear, normal breath sounds, no respiratory distress, no accessory muscle use Hand: Right, limited ROM (Range of motion is limited, but this is normal for patient since surgery, no change in range of motion since new injury today.), soft tissue tenderness, swelling (very mild swelling around incision site) Neurologic/Psychiatric: alert, normal mood/affect Skin: normal color, warm/dry Progress/Results/Core Measures Results/Orders My Orders Orders - ALICE DOOLEY APRN Hand, Right, 3 Views (10/07/22 15:42) Vital Signs/I&O 10/07/22 10/07/22 15:30 16:34 Temp 36.1 Pulse 87 87 Resp 18 18 B/P (MAP) 196/120 (145) 196/120 Pulse Ox 98 98 O2 Delivery Room Air Room Air Blood Pressure Mean: 145 Progress Progress Note : Time: 15:40 Progress Note Patient seen and evaluated, resting comfortably in recliner, no acute distress. Based on exam and symptoms, x-ray of right hand ordered. 1429 x-ray reviewed. Healing fifth metacarpal fracture, no new injury. Results discussed with patient. Discharge instructions and return precaution provided. Diagnostic Imaging Diagonstic Imaging: Xray Plain Films/CT/US/NM/MRI: other (hand) Comments [facility], [place] NAME: RAQUEL RAHMAN [facility] REC#: [id number] PT STATUS: REG ER : 1990 PHYSICIAN: ALICE DOOLEY APRN ADMIT DATE: 10/07/22/ER Draft Date of Exam:10/07/22 HAND, RIGHT, 3 VIEWS Indication: Hand pain. Compared with radiographs 07/18/2022. Findings: Since the previous exam, there has been apparent plating and subsequent hardware removal transfixing the prior 5th metacarpal fracture which appears healed in the interim. No adverse development. No new injury. The 5th metacarpal healed in anatomic alignment. Impression: Interval postsurgical changes and healing of 5th metacarpal fracture. No new injury identified. Dictated on workstation # [id number] Dict: 10/07/22 1557 Trans: 10/07/[address] [facility] [id number] Interpreted by: NATALIA GONZALEZ Electronically signed by: Departure Impression Primary Impression: Hand injury Disposition: 01 HOME, SELF-CARE Condition: Stable Departure-Patient Inst. Decision time for Depature: 16:31 Referrals: NO,LOCAL PHYSICIAN (PCP/Family) Primary Care Physician Patient Instructions: Hand Pain Add. Discharge Instructions: Follow-up with orthopedic as scheduled. Keep using ice, 20 minutes at a time several times a day. You may take 800 mg of ibuprofen every 8 hours with food as needed for pain. Return for any new, concerning, or worsening symptoms. All discharge instructions reviewed with patient and/or family. Voiced understanding. ALICE DOOLEY APRN Oct 07, 2022 15:41
--- NOTE | 2022-10-07 16:02 | Diagnostic Imaging Report ---
Indication: Hand pain. Compared with radiographs 07/18/2022. Findings: Since the previous exam, there has been apparent plating and subsequent hardware removal transfixing the prior 5th metacarpal fracture which appears healed in the interim. No adverse development. No new injury. The 5th metacarpal healed in anatomic alignment. Impression: Interval postsurgical changes and healing of 5th metacarpal fracture. No new injury identified. Dictated by: Dictated on workstation # [id number]
[2022-10-07 16:34] VITALS: BP 196/120
== END 2022-10-07 16:34 | disposition home or self-care (01) ==
LOC: EDUNIT# 15:18 → ER 15:22
DX: S62.306D Unspecified fracture of fifth metacarpal bone, right hand, subsequent encounter for fracture with routine healing (principal); I10 Essential (primary) hypertension; F17.210 Nicotine dependence, cigarettes, uncomplicated; Z79.899 Other long term (current) drug therapy; X58.XXXD Exposure to other specified factors, subsequent encounter
CPT/HCPCS: 73130

== ENCOUNTER 2022-10-25 11:17 | Emergency (ER) | payer BC ==
[~2022-10-25] VITALS: Ht 172 cm; Wt 88.0 kg
[2022-10-25] MEDS ORDERED: LISI40TA9 PO (11:49)
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
[2022-10-25 12:01] VITALS: BP 197/122
== END 2022-10-25 12:01 | disposition home or self-care (01) ==
LOC: EDUNIT# 11:17 → ER 11:21
DX: I10 Essential (primary) hypertension (principal); F17.210 Nicotine dependence, cigarettes, uncomplicated; Z91.148 Patient's other noncompliance with medication regimen for other reason; Z82.49 Family history of ischemic heart disease and other diseases of the circulatory system
CPT/HCPCS: 93005